=== PATIENT | female | born 1945 | race Caucasian/White ===

== ENCOUNTER 2020-06-13 08:27 | Day surgery (SDC) | payer OTHER ==
[2020-06-10 10:20] LABS: Absolute Lymphocytes (CBC) 1.8 K/uL (0.7-4.9); Basophils % 1.4 % (0-1.3); Hematocrit 41.4 % (36.0-45.0); Lymphocytes % 21.9 % (15.3-44.8); MPV 9.4 fL (7.6-11.3); RBC Red Blood Cell Count 4.56 M/uL (3.86-4.86)
--- NOTE | 2020-06-10 10:22 | RAD REPORT ---
EXAM DESCRIPTION: RAD - Chest Pa And Lat (2 Views) - 06/10/2020 10:11 am CLINICAL HISTORY: preop cardiac cath lab technologist, pending vascular catheterization procedure COMPARISON: December 2017 chest film; April 2018 CT chest TECHNIQUE: Frontal and lateral views of the chest were obtained. FINDINGS: The lungs are clear of an acute infiltrate or mass. Moderate severity bolus changes are p resent in the upper lung yepez. Fibrotic stranding in the lower lung yepez not clearly different th an comparison. Patient has flattened diaphragm and increased retrosternal space. Heart size is normal and central vasculature is within normal limits. No pleural effusion or pneumothorax seen. No acut e bony finding noted. No aortic abnormality. IMPRESSION: Prominent COPD changes similar to 2019 imaging. No acute finding.
[2020-06-10 10:32] LABS: Protime INR 0.96
[2020-06-10 10:45] LABS: Potassium 3.4 mmol/L (3.5-5.1)
[2020-06-13] MEDS ORDERED: NA CHLORIDE 0.9% 500 ML ONE (09:01)
[2020-06-13] MEDS ORDERED: HEPA 1000U/500MLS 2,000 UNIT/1,000 ML BAG IV ONE (09:23)
[2020-06-13] MEDS ORDERED: MIDAZOLAM HCL 2 MG/2 ML INJ ONE ×2 (09:48→09:54)
[2020-06-13] MEDS ORDERED: ATROPINE SULF 1 MG/10 ML SYR IV ONE (09:49)
[2020-06-13] MEDS ORDERED: FENTANYL CITR 100 MCG/2 ML ONE (09:49)
--- NOTE | 2020-06-13 11:25 | OP ---
Surgeon: González Newton MD Pump Servicer Supervisor: Mr. Costello. Procedure: Ms. Samuel is a 74-year-old woman with history of hypertension, dyslipidemia, severe tobac co use, severe PAD by Doppler and symptoms, brought to the medical lab technologist today as an outpatient for abdomi nal angiogram with run-off. Indication: PAD and abnormal arterial Doppler. Procedure In Detail: She was brought to the medical lab technologist as an outpatient, prepped and draped in the rou canelo sterile fashion. Given Versed and fentanyl for sedation. A 6-Romansh sheath introduced in the r ight common femoral artery successfully using the Seldinger technique and 10 cc of Xylocaine. A pigt ail catheter was advanced successfully above the renal artery in the distal aorta. Abdominal angiogr am with runoff was done showing normal renals, normal aorta, normal iliacs, and normal bilateral comm on femoral arteries. She had 100% occlusion of both SFA from the ostium all the way down to above th e popliteal. Both arteries reconstituted at the popliteal with good distal flow. The patient tolera gustavo the procedure well. There were no complications. Estimated Blood Loss: 5 mL. Postoperative Diagnosis: Severe peripheral arterial disease. Plan: For bilateral femoral-popliteal surgery. The film will be given to the patient. I will make an arrangement for outpatient surgery in [place]. Angiography in the right common femoral artery are a showed a patent common femoral artery. Angio-Seal was used to close the case. Anesthesia: Total conscious sedation was 45 minutes. MAXIMILIAN/AMANDA Voice ID: [id number] Report ID: [id number]
[2020-06-13 13:18] VITALS: BP 130/56; TEMP 97.3; O2SAT 97
== END 2020-06-13 12:10 | disposition home or self-care (01) ==
LOC: CCL 08:27
DX: I70.213 Atherosclerosis of native arteries of extremities with intermittent claudication, bilateral legs (principal); I70.92 Chronic total occlusion of artery of the extremities; I10 Essential (primary) hypertension; E78.5 Hyperlipidemia, unspecified; F17.200 Nicotine dependence, unspecified, uncomplicated; Z20.822 Contact with and (suspected) exposure to COVID-19
CPT/HCPCS: 93005; 85025; 80048; 36415; 85610; 85730; 71046; 36200; 75630; U0003; C1893; J2250; J3010; J7040; J1644

== ENCOUNTER 2021-07-17 19:00 | Emergency (ER) | payer OTHER ==
--- OUTSIDE RECORDS SUMMARY | 2021-07-17 19:02 | XMS REPORT | Clinical Summary ---
:1945 Author Organization [facility] MD [facility] Address [address] [place] [address] Care Team Providers Name Role Phone Tanner Mullen MD Unavailable Maddie Vargas Unavailable Hayley Verdin Unavailable Hayley Ley NP Unavailable Unavailable Stanley Barry MD Unavailable Matt Lemus MD Unavailable Paula Zeng MD Unavailable MD Vinnie Unavailable Maddie Gale MD Unavailable Unavailable MD Randell Unavailable Kamran Porter Unavailable MD Theron Unavailable Unavailable Matt Lemus MD Primary Care Provider Allergies Active Allergy Reactions Severity Noted Date Comments Naproxen Sodium 04/29/2015 Advised not to take this medication Codeine Sulfate 04/29/2015 Nausea and v omiting Hydrocodone-Acetaminophe 04/29/2015 Vincent sea and vomiting n Tetracyclines Other (See Comments) 07/07/2015 "Black tongue" Medications Medication Sig Dispensed Refills Start Date End Date Status BIOTIN ORAL Take by mouth 0 Acti ve daily. CALCIUM Take 1,200 mg/mL 0 Act pretty CARBONATE/VITAMIN D3 by mouth daily. (CALCIUM+D ORAL) GUAIFENESIN/PSEUDOEPHE Take 1 tablet by 0 Active DRNE HCL (MUCINEX D mouth daily. ORAL) Reported on 07/05/2016 VITAMIN E, Take 400 mg by 0 Acti ve DL,TOCOPHERYL ACET, mouth. Reported (VITAMIN E, ACETATE,) on 07/05/2016 400 units cap capsule cholecalciferol, Take 400 Units by 0 Active vitamin D3, (VITAMIN mouth. D3) 5,000 units tab tablet anastrozole (ARIMIDEX) Take 1 tablet (1 90 tablet 3 12/15/2015 Active 1 mg mg total) by mouth tabletIndications: daily. Personal history of malignant neoplasm of breast amLODIPine (NORVASC) 0 01/04/2015 Active 2.5 mg tablet lisinopril Take 5 mg by mouth 0 Active (PRINIVIL,ZESTRIL) 5 every morning. mg tablet acetaminophen-codeine 0 06/30/2016 Active (TYLENOL #3) 300 mg-30 mg tablet ondansetron (ZOFRAN) 4 0 06/30/2016 Active mg tablet turmeric root extract Take 500 mg by 0 Active 500 mg cap mouth daily. coconut oil 1,000 mg Take 1 mg by mouth 0 Active cap daily. anastrozole (ARIMIDEX) Take 1 tablet (1 90 tablet 3 07/05/2016 Active 1 mg mg) by mouth tabletIndications: daily. 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, Osteoporosis Active Problems Problem Noted Date Osteoporosis 12/29/2015 Infiltrating duct carcinoma of overlapping sites of ri ght female breast 03/11/2014 Cancer Staging: Pathologic stage from 10/13/2013: Stage IA (T1c, N0, cM0) - Signed by Kei Lemus MD on 07/07/2015 Surgical History Surgery Date Site/Laterality Comments APPENDECTOMY HYSTERECTOMY TUBAL LIGATION Bilateral INCONTINENCE SURGERY BREAST LUMPECTOMY Right with slnb Medical History Medical History Date Comments Breast cancer Chronic obstructive pulmonary disease Hypertension Hypercholesterolemia Chronic bronchitis Pneumonia Chronic bronchitis Family History Medical History Relation Name Comments Breast cancer Mother Relation Name Status Comments Mother Social History Tobacco Use Types Packs/Day Years Used Date Current Every Day Smoker Cigarettes 2 Alcohol Use Standard Drinks/Week Comments No 0 (1 standard drink = 0.6 oz pure alcoho l) Sex Assigned at Date Recorded Not on file Obstetrics History Para Term AB IAB SAB Ectopic Multiple Living Live Births 3 3 3 2 Date Outcome GA Total Labor/2nd/3rd Weight Sex Delivery Anes PTL Jane A 1 A5 Name Clin Labor Term Term Term Last Filed Vital Signs Not on file Plan of Treatment Health Maintenance Due Date Last Done Comments COVID-19 Vaccination (1) 09/28/1950 Results Not on fileafter 07/17/2020 Insurance Payer Benefit Plan / Subscriber ID Effective Dates Phone Addre ss Type Group HUMANA HUMANA CHOICE [id number] 2011-Presen [address] [address] Medicare [place]IC[place] [address] ([place]) [address] [address] Ting Samuel Personal/Family Self [address] [place] [address] (Home) Road [address] [place] [phone] Ting Samuel Personal/Family Self [address] [place] [address] ([place]) [address] [phone] Advance Directives Type Date Recorded Patient Memory Care Program Director Explanati on Advance Directives: Medical 10/12/2013 12:00 AM Ca storical Power of Layer Out Care Teams Land Appraiser Relationship Specialty Start Date End Date Tanner Mullen, PCP - External Primary 09/09/13 MD Care Provider Kei Lemus PCP - General Breast Medical 07/05/16 MD [facility] [address] [place] [id number] Chandni Vargas, Physician Corn Cutter Operator 06/15/15 PA [address] [place] [address] Leigha Verdin, Nurse Practitioner 06/15/15 RISK INVESTIGATOR [address] [place] [id number] Daksha Ley, Nurse Practitioner 06/15/15 FISH DRIER Shantanu Barry MD Physician 06/15/[address] [place] [id number] Kei Lemus Physician 06/15/15 MD Matt [address] [place] [id number] Dilshad Zeng, Physician 06/15/[address] [place] [id number] Verónica Birmingham MD Physician 06/15/[address] [place] [id number] Quentin Gale MD Physician 06/15/15 Dipak Mejias MD Physician 06/15/[address] [place] [id number] Sobeida Porter PA Physician Corn Cutter Operator 06/15/[address] [place] [address]. [place] [address] Angelic Crump MD Physician 06/15/15
--- OUTSIDE RECORDS SUMMARY | 2021-07-17 19:04 | XMS REPORT | Continuity of Care Document ---
:1945 Author Organization Formerly [facility] t Address [address] [place] [address] Care Team Providers Name Role Phone Mariah DE JESUS, N. Primary Care Physician NADIA RIVAS Attending Clinician Unavailable Alber RN, P Attending Clinician Unavailable Po, Care Clinic Attending Clinician Unavailable Bernardo Ervin Attending Clinician NADIA RIVAS Admitting Clinician Unavailable Payers Payer Name Policy Type Policy Number Effective Date Expiration Date S ource [employer] MEDICARE [id number] 2018 ADV 00:00:00 Problems Condition Condition Condition Status Onset Resolution Last Treating Co mments Source Name Details Category Date Date Treatment Clinician Date Bladder Bladder Disease Active Univers incontinen incontinen 5-08 it y of ce ce 00:00: [place] 00 Medical Branch Bowel Bowel Disease Active 2020-0 Univers incontinen incontinen 5-08 it y of ce ce 00:00: [place] 00 Medical Branch COPD COPD Disease Active 2019- Univers (chronic (chronic 5-08 [place] obstructiv [place] Medical pulmonary pulmonary Bran ch disease) disease) with with chronic chronic bronchitis bronchitis PAD PAD Disease Active 2019- Univers (periphera (periphera 5-08 it y of l artery l artery 00:00: [place] disease) disease) 00 Medica l Branch Acute Acute Disease Active 2018- Univers midline midline 8-02 ity of low back low back 00:00: [place] pain pain 00 Medical without without Branch sciatica sciatica Cerebrovas Cerebrovas Disease Active U nivers cular cular 3- ity of accident accident 00:00: [place] (CVA) due (CVA) due 00 Medi trey to to Branch 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 Osteoporos Osteoporos Disease Active M D is is 9- Anderso 00:00: n 00 Malignant Malignant Disease Active 2013-04 Uni vers neoplasm neoplasm 2-04 ity of of of 00:00: [place] overlappin overlappin 00 Me dical g sites of g sites of Br anch 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 00:00: n of of 00 overlappin overlappin g sites of g sites of right right female female breast breast Allergies, Adverse Reactions, Alerts Allergy Allergy Status Severity Reaction(s) Onset Inactive Treating Comm ents Source Name Type Date Date Clinician Codeine Propensi Active Nausea Univers ty to and/or 07-04 ity of adverse Vomiting 00:00: [place] reaction 00 Medical s Branch CODEINE DRUG Active N/V Univers INGREDI 3 ity of 00:00: [place] 00 Medical Branch TETRACYC Allergy Active Med Other [facility] Tetracyc Propensi Active Unknown - "Black Uni vers lines ty to See comments 331 tongue" ity of adverse 00:00: [place] reaction 00 Medical s Branch TETRACYC Drug Active Unknown-Cmnt Un adams LINES Class 3-31 ity of 00:00: [place] 00 Medical Branch NAPROXEN Allergy Active High [facility]UM - [facility] CODEINE Allergy Active Med N\\T\\V [facility] HYDROCOD Allergy Active Med [address] [facility] ONE-ACET - [facility] - AMINOPHE 00:00: Medical N 00 Center Codeine Propensi Active Unknown - Nausea Univ ers Sulfate ty to See comments 04-29 and ity of adverse 00:00: vomiting [place] reaction 00 Medical s Branch Hydrocod Propensi Active Unknown - Nausea Uni vers one-Acet ty to See comments 1- and it y of aminophe adverse 00:00: vomiting [place] n reaction 00 Medical s Branch Naproxen Propensi Active Unknown - Advised Un adams Sodium ty to See comments 1-22 not to ity of adverse 00:00: take this [place] reaction 00 medicatio Medic al s n Branch CODEINE DRUG Active Unknown-Cmnt Uni vers SULFATE INGREDI 04-29 ity of 00:00: [place] 00 Medical Branch HYDROCOD DRUG Active Unknown-Cmnt Un adams ONE-ACET - ity of AMINOPHE 00:00: [place] N 00 Medical Branch NAPROXEN DRUG Active Unknown-Cmnt Un adams SODIUM INGREDI 04-29 ity of 00:00: [place] 00 Medical Branch NO KNOWN Allergy Active [facility] ALLERGIE S NO KNOWN Drug Active Univers ALLERGIE Class ity of S [facility] Family History Family Member Diagnosis Comments Start Date Stop Date Source Natural mother Breast cancer MD Jeovanny austin Social History Social Habit Start Date Stop Date Quantity Comments Source Exposure to Not sure [facility]-CoV-2 (event) [facility] History of tobacco Cigarette Smoker MD Marte use Alcohol intake 2015-12-29 2015-12-29 Current MD Rico miller 00:00:00 00:00:00 non-drinker of alcohol (finding) Cigarettes smoked 2015-07-07 2015-07-07 MD Jeovanny austin current (pack per 00:00:00 00:00:00 day) - Reported Sex [birth year] MD Ramos on 00:00:00 00:00:00 Smoking Status Start Date Stop Date Source Never smoker [facility] Smokes tobacco daily 2015-07-07 00:00:00 MD Jeovanny austin Medications Ordered Filled Start Stop Current Ordering Indication Dosage Frequency Signature Comments Components Source Medication Medication Date Date Medication? Clinician (SIG) Name Name lisinopril 0 2020- No 5mg Take 5 mg U nivers 5 mg tablet 508 05-08 by mouth. it y of 18:22: 00:00 [place] 46 :00 Medical Branch albuterol Yes 2{puff} Inhale 2 U nivers 90 5-08 Puffs. ity of mcg/actuati 18:12: [place] on inhaler 19 Medical Branch albuterol 2020-0 Yes 2{puff} Inhale 2 U nivers 90 5-08 Puffs. ity of mcg/actuati 18:12: [place] on inhaler 19 Medical Branch calcium 2020-0 Yes 1200mg/ Take 1,200 U nivers carbonate 5-08 mL mg/mL by ity of (CALCIUM 18:04: mouth. [place] 300 ORAL) 17 Medical Branch ascorbic 2020-0 Yes Univers acid,sod-zi 5-08 ity of nc ox,gluc 18:04: [place] (ZINC AND 17 Medical C) 120-20 Branch mg Lozg calcium 2020-0 Yes 1200mg/ Take 1,200 U nivers carbonate 5-08 mL mg/mL by ity of (CALCIUM 18:04: mouth. [place] 300 ORAL) Medical Branch ascorbic 2020-0 Yes Univers acid,sod-zi 5-08 ity of nc ox,gluc 18:04: [place] (ZINC AND 17 Medical C) 120-20 Branch mg Lozg BIOTIN ORAL 2020-0 Yes Take by Un adams 5-08 mouth. ity of 18:03: [address] Branch Cholecalcif 2020-0 Yes 400U Take 400 Un adams nancy, 5-08 Units by ity of Vitamin D3, 18:03: [place]. [place] 125 mcg 13 Medical (5,000 Branch unit) tablet BIOTIN ORAL 2020-0 Yes Take by Un adams 5-08 mouth. ity of 18:03: [address] Cholecalcif 2020-0 Yes 400U Take 400 Un adams nancy, 5-08 Units by ity of Vitamin D3, 18:03: [place]. [place] 125 mcg 13 Medical (5,000 Branch unit) tablet coconut oil 2020-0 Yes 1mg Take 1 mg U nivers 1,000 mg 5-08 by mouth. ity of Cap 18:01: [address] coconut oil 2020-0 Yes 1mg Take 1 mg U nivers 1,000 mg 5-08 by mouth. ity of Cap 18:01: [address] fluticasone 2020-0 Yes [id number] 1{inhal Inhale 1 Univers -umeclidin- 5-08 er} Inhaler ity o f vilanter 00:00: daily. [place] (TRELEGY 00 Medical ELLIPTA) Branch 100-62.5-25 mcg DsDv fluticasone 2020-0 Yes [id number] 1{inhal Inhale 1 Univers -umeclidin- 5-08 er} Inhaler ity o f vilanter 00:00: daily. [place] (TRELEGY 00 Medical ELLIPTA) Branch 100-62.5-25 mcg DsDv Ascorbic 2020-0 Yes Univers Acid 5-07 ity of (VITAMIN C) 00:00: [place] 500 mg CpSR 00 Medical Branch Ascorbic 2020-0 Yes Univers Acid 5-07 ity of (VITAMIN C) 00:00: [place] 500 mg CpSR 00 Medical Branch neomycin-po 2019-0 2020- No Unive rs lymyxin-dex 5-07 05-08 ity of amethasone 00:00: 00:00 [place] 3.5 00 :00 Medical mg/g-10,000 Branch unit/g-0.1 % ophthalmic ointment hydroxychlo 2019-0 Yes Univer s roquine 200 5-06 ity of mg tablet 00:00: [place] 00 Medical Branch azithromyci 2020-0 Yes Univer s n 5-06 ity of (ZITHROMAX) 00:00: [place] 500 mg 00 Medical tablet Branch hydroxychlo 2019-0 Yes Univer s roquine 200 5-06 ity of mg tablet 00:00: [place] 00 Medical Branch azithromyci 2020-0 Yes Univer s n 5-06 ity of (ZITHROMAX) 00:00: [place] 500 mg 00 Medical tablet Branch amLODIPine 2019-0 2020- No Univer s 5 mg tablet 4-03 05-08 ity of 00:00: 00:00 [place] 00 :00 Medical Branch potassium 2020-0 Yes Univers chloride 8 4-02 ity of mEq CR 00:00: [place] capsule 00 Medical Branch potassium 2020-0 Yes Univers chloride 8 4-02 ity of mEq CR 00:00: [place] capsule 00 Medical Branch levoFLOXaci 2019-0 2020- No Unive rs n 500 mg 2-25 05-08 ity of tablet 00:00: 00:00 [place] 00 :00 Medical Branch methylPREDN 2019-0 2020- No Unive rs ISolone 4 2-25 05-08 ity of mg tablets 00:00: 00:00 [place] 00 :00 Medical Branch amLODIPine 2019-0 2020- No Univer s 5 mg tablet 9- 05-08 ity of 00:00: 00:00 [place] 00 :00 Medical Branch potassium 2018- Yes Univers chloride 3-11 ity of (MICRO-K 00:00: [place] ORAL) 00 Medical Branch furosemide Yes Univers (LASIX) 80 3-11 ity of mg tablet 00:00: [place] 00 Medical Branch potassium Yes Univers chloride 3-11 ity of (MICRO-K 00:00: [place] ORAL) 00 Medical Branch furosemide Yes Univers (LASIX) 80 3-11 ity of mg tablet 00:00: [place] 00 Medical Branch BIOTIN ORAL Yes Take by MD 3-30 mouth Anderso 12:55: daily. n 42 CALCIUM Yes 1200mg/ Take 1,200 M D CARBONATE/V 3-30 mL mg/mL by Jeovanny rso ITAMIN D3 12:55: mouth n (CALCIUM+D 42 daily. ORAL) GUAIFENESIN Yes 1{tbl} Take 1 MD /PSEUDOEPHE 3-30 tablet by And erso DRNE HCL 12:55: mouth n (MUCINEX D 42 daily. ORAL) Reported on 07/05/2016 VITAMIN E, Yes 400mg Take 400 MD DL,TOCOPHER 3-30 mg by Anderso YL ACET, 12:55: mouth. n (VITAMIN E, 42 Reported ACETATE,) on 400 units 07/05/2016 cap capsule cholecalcif Yes 400U Take 400 MD nancy, 3-30 Units by Anderso vitamin D3, 12:55: mouth. n (VITAMIN 42 D3) 5,000 units tab tablet lisinopril Yes 5mg Take 5 mg MD (PRINIVIL,Z 3-30 by mouth Jeovanny rso ESTRIL) 5 12:55: every n mg tablet 42 morning. turmeric Yes 500mg Take 500 MD root 3-30 mg by Anderso extract 500 12:55: mouth n mg cap 42 daily. coconut oil Yes 1mg Take 1 mg M D 1,000 mg 3-30 by mouth Anderso cap 12:55: daily. n 42 anastrozole Yes Osteoporosi 1mg Take 1 MD (ARIMIDEX) 3-30 s tablet (1 Jeovanny rso 1 mg tablet 00:00: mg) by n 00 mouth daily. acetaminoph Yes MD en-codeine 3-25 Anderso (TYLENOL 00:00: n #3) 300 00 mg-30 mg tablet ondansetron Yes MD (ZOFRAN) 4 3-25 Anderso mg tablet 00:00: n 00 acetaminoph 2019- No Unive rs en-codeine 325 05-08 ity of 300-30 mg 00:00: 00:00 [place] tablet 00 :00 Medical Branch ondansetron 2020- No Unive rs 4 mg tablet 06-30-08 ity of 00:00: 00:00 [place] 00 :00 Medical Branch anastrozole Yes Personal 1mg Take 1 MD (ARIMIDEX) 12-14 history of tablet (1 Anderso 1 mg tablet 00:00: malignant mg total) n 00 neoplasm of by mouth breast daily. anastrozole 2019- No 1mg Take 1 mg Univers 1 mg tablet 12-14-08 by mouth ity of 00:00: 00:00 [place] 00 :00 Medical Branch amLODIPine 0 Yes Univers 2.5 mg 9-29 ity of tablet 00:00: [place] 00 Medical Branch amLODIPine 2014-0 Yes Univers 2.5 mg 9-29 ity of tablet 00:00: [place] 00 Medical Branch amLODIPine 0 Yes (NORVASC) 9-29 Anderso 2.5 mg 00:00: n tablet 00 aspirin 2000-0 Yes Univers (ADULT LOW 1-15 ity of DOSE 00:00: [place] ASPIRIN) 81 00 Medical mg EC Branch tablet aspirin 2000-0 Yes Univers (ADULT LOW 1-15 ity of DOSE 00:00: [place] ASPIRIN) 81 00 Medical mg EC Branch tablet Vital Signs Vital Name Observation Time Observation Value Comments Source HEIGHT 2020-08-17 06:20:00 154.9 cm WEIGHT 2020-08-17 06:20:00 68.539 kg HEIGHT 2020-08-16 11:55:00 154.9 cm WEIGHT 2020-08-16 11:55:00 68.04 kg WEIGHT 2020-06-23 09:54:00 68.901 kg HEIGHT 2020-06-22 06:24:00 156.2 cm WEIGHT 2020-06-22 06:24:00 65 kg HEIGHT 2020-06-20 10:58:00 156.2 cm WEIGHT 2020-06-20 10:58:00 68.04 kg HEIGHT 2020-08-30 09:30:00 154.9 cm WEIGHT 2020-08-30 09:30:00 68.04 kg HEIGHT 2020-08-17 06:20:00 154.9 cm WEIGHT 2020-08-17 06:20:00 68.539 kg HEIGHT 2020-08-16 11:55:00 154.9 cm WEIGHT 2020-08-16 11:55:00 68.04 kg HEIGHT 2020-08-02 09:32:00 154.9 cm WEIGHT 2020-08-02 09:32:00 68.04 kg HEIGHT 2020-08-02 09:32:00 154.9 cm WEIGHT 2020-08-02 09:32:00 68.04 kg HEIGHT 2020-07-05 09:33:00 154.9 cm WEIGHT 2020-07-05 09:33:00 68.04 kg WEIGHT 2020-06-23 09:54:00 68.901 kg HEIGHT 2020-06-22 06:24:00 156.2 cm WEIGHT 2020-06-22 06:24:00 65 kg HEIGHT 2020-06-20 10:58:00 156.2 cm WEIGHT 2020-06-20 10:58:00 68.04 kg HEIGHT 2020-06-16 09:10:00 156.2 cm WEIGHT 2020-06-16 09:10:00 69.4 kg HEIGHT 2020-06-16 09:10:00 156.2 cm WEIGHT 2020-06-16 09:10:00 69.4 kg Systolic blood 2019-08-14 18:01:00 119 mm[Hg] Univer sity of pressure [facility] Diastolic blood 2019-08-14 18:01:00 76 mm[Hg] Unive rsity of pressure [facility] Heart rate 2019-08-14 18:01:00 77 /min [facility] Body temperature 2019-08-14 18:01:00 36.67 [place] Univ ersity [facility] Respiratory rate 2019-08-14 18:01:00 20 /min [facility] Body height 2019-08-14 18:01:00 152.4 cm [facility] Body weight 2019-08-14 18:01:00 70.308 kg [facility] BMI 2019-08-14 18:01:00 30.27 kg/m2 [facility] Oxygen saturation in 2019-08-14 18:01:00 99 /min [facility] Arterial blood by [facility] Pulse oximetry Branch Procedures This patient has no known procedures. Plan of Care Planned Activity Planned Date Details Comments Source Future Scheduled Test 1950-09-28 00:00:00 COVID-19 Vaccination MD Marte (1) [code = COVID-19 Vaccination (1)] Encounters Start End Encounter Admission Attending Care Care Encounter Source Date/Time Date/Time Type Type Clinicians Facility Department ID 2021-01-14 Inpatient PABLO RIVAS Surgery [id number] [facility] 16:26:39 GABI 2021-01-14 Inpatient MARGUERITE RIVAS Surgery [id number] [facility] 07:34:27 GABI 2020-08-30 2020-08-30 Outpatient MISAEL RIVAS [facility] [id number] [facility] 00:00:00 00:00:00 GABI 2020-08-16 2020-08-16 [id number] 00:00:00 00:00:00 2020-08-03 2020-08-03 [id number] [facility] 00:00:00 00:00:00 GABI 2020-08-02 2020-08-02 [facility] [id number] [facility] 00:00:00 00:00:00 GABI 2020-07-05 2020-07-05 [facility] [id number] [facility] 00:00:00 00:00:00 GABI 2020-06-20 2020-06-20 Outpatient [facility] [id number] [facility] 00:00:00 00:00:00 2020-06-16 2020-06-16 [facility] [id number] [facility] 00:00:00 00:00:00 GABI 2019-08-15 2019-08-15 Telephone GEE Campo [id number] Univers 00:00:00 00:00:00 Tiara Tracy ANJANA [id number] ity of [facility] [id number] Anastacio as [phone] [address] 2019-08-14 2019-08-14 Outpatient R [facility] [id number] Univers 13:20:00 13:20:00 ity [facility] 2019-08-14 2019-08-14 Urgent Pob1, Acute Care Clinic [facility] [id number]. [id number] Univers 12:53:03 13:13:[address] [facility] [id number] ity [facility] [id number] Anastacio as Normaio [id number] [place] dical nal 044 Branch Office [address] One Results Test Description Test Time Test Comments Results Result Comments Source BASIC METABOLIC PANEL 2020-08-18 07:02:00 Test Item Value Reference Range Interpretation Comme nts SODIUM (BEAKER) (test code 135 meq/L 136-145 L = 381) POTASSIUM (BEAKER) (test 4.4 meq/L 3.5-5.1 code = 379) CHLORIDE (BEAKER) (test 101 meq/L 98-107 code = 382) CO2 (BEAKER) (test code = 25 meq/L 22-29 355) BLOOD UREA NITROGEN 11 mg/dL 7-21 (BEAKER) (test code = 354) CREATININE (BEAKER) (test 0.78 mg/dL 0.57-1.25 code = 358) GLUCOSE RANDOM (BEAKER) 105 mg/dL 70-105 (test code = 652) CALCIUM (BEAKER) (test code 8.9 mg/dL 8.4-10.2 = 697) EGFR (BEAKER) (test code = 72 mL/min/1.73 sq m ESTIMATED GFR IS NOT 1092) ACCURATE CRE ATININE CLEARANCE IN [place] EDICTING GLOMERULAR FILT RATION RATE. ESTIMATED GFR IS NOT APPLICABLE FOR DIALYSIS PATIENTS. Senior Scientist ID - KATHY [facility] W/PLT COUNT & AUTO [id number] 06:37:00 Test Item Value Reference Range Interpretation Comments WHITE BLOOD CELL COUNT (BEAKER) 13.4 K/ L 3.5-10.5 H (test code = 775) RED BLOOD CELL COUNT (BEAKER) 4.08 M/ L 3.93-5.22 (test code = 761) HEMOGLOBIN (BEAKER) (test code = 12.3 GM/DL 11.2-15.7 410) HEMATOCRIT (BEAKER) (test code = 37.9 % 34.1-44.9 411) MEAN CORPUSCULAR VOLUME (BEAKER) 92.9 fL 79.4-94.8 (test code = 753) MEAN CORPUSCULAR HEMOGLOBIN 30.1 pg 25.6-32.2 (BEAKER) (test code = 751) MEAN CORPUSCULAR HEMOGLOBIN CONC 32.5 GM/DL 32.2-35.5 (BEAKER) (test code = 752) RED CELL DISTRIBUTION WIDTH 13.6 % 11.7-14.4 (BEAKER) (test code = 412) PLATELET COUNT (BEAKER) (test 300 K/CU MM 150-450 code = 756) MEAN PLATELET VOLUME (BEAKER) 10.8 fL 9.4-12.3 (test code = 754) NUCLEATED RED BLOOD CELLS 0 /100 WBC 0-0 (BEAKER) (test code = 413) NEUTROPHILS RELATIVE PERCENT 81 % (BEAKER) (test code = 429) LYMPHOCYTES RELATIVE PERCENT 12 % (BEAKER) (test code = 430) MONOCYTES RELATIVE PERCENT 6 % (BEAKER) (test code = 431) EOSINOPHILS RELATIVE PERCENT 0 % (BEAKER) (test code = 432) BASOPHILS RELATIVE PERCENT 0 % (BEAKER) (test code = 437) NEUTROPHILS ABSOLUTE COUNT 10.85 K/ L 1.56-6.13 H (BEAKER) (test code = 670) LYMPHOCYTES ABSOLUTE COUNT 1.56 K/ L 1.18-3.74 (BEAKER) (test code = 414) MONOCYTES ABSOLUTE COUNT (BEAKER) 0.80 K/ L 0.24-0.36 H (test code = 415) EOSINOPHILS ABSOLUTE COUNT 0.05 K/ L 0.04-0.36 (BEAKER) (test code = 416) BASOPHILS ABSOLUTE COUNT (BEAKER) 0.02 K/ L 0.01-0.08 (test code = 417) IMMATURE GRANULOCYTES-RELATIVE 1 % 0-1 PERCENT (BEAKER) (test code = 2801) PROTHROMBIN [id number] 06:26:00 Test Item Value Reference Range Interpretation Comments PROTIME (BEAKER) 13.1 seconds 11.9-14.2 (test code = 759) INR (BEAKER) (test 1.03 See_Comment [Automat ed message] code = 370) The system Uguru generated this result transmitted ref erence range: <=5.90. The reference range was not used to int erpret this result as normal/abnormal . Effective 09/03/2018: PT Reference Range ChangeNew: 11.9-14.2 Previous: 11.7- 14.7RECOMMENDED COUMADIN/WARFARIN INR THERAPY RANGESSTANDARD DOSE: 2.0-3.0 Includes: PROPHYLAXIS for venous thrombosis, systemic embolization; TREATMENT for venous thrombosis and/or pulmonary embolus.HIGH RISK: Target INR is2.5-3.5 for patients wiht mechanical heart valves.[id number] 06:23:00 Test Item Value Reference Range Interpretation Comments PARTIAL THROMBOPLASTIN TIME 27.9 seconds 22.5-36.0 (BEAKER) (test code = 760) GLUCOSE-STAT [id number] 10:17:00 Test Item Value Reference Range Interpretation Comments GLUCOSE RANDOM (BEAKER) (test code 111 mg/dL 70-110 H = 652) POTASSIUM-STAT [id number] 10:17:00 Test Item Value Reference Range Interpretation Comments POTASSIUM (BEAKER) (test code = 3.2 meq/L 3.6-5.5 L 379) SODIUM NA-STAT [id number] 10:16:00 Test Item Value Reference Range Interpretation Comments SODIUM (BEAKER) (test code = 381) 143 meq/L 136-145 HGB/HCT (H&H) - STAT [id number] 10:16:00 Test Item Value Reference Range Interpretation Comments HEMOGLOBIN (BEAKER) (test code = 14.1 GM/DL 12.0-15.0 410) HEMATOCRIT (BEAKER) (test code = 41.0 % 36.0-45.0 411) CALCIUM, [id number] 10:16:00 Test Item Value Reference Range Interpretation Comments CALCIUM IONIZED (BEAKER) (test 1.21 mmol/L 1.12-1.27 code = 698) PH, BLOOD (BEAKER) (test code = 7.28 1810) POCT-GLUCOSE [id number] 06:38:00 Test Item Value Reference Range Interpretation Comments POC-GLUCOSE METER 101 mg/dL 70-110 : TESTED A T BSC 6720 (BEAKER) (test code [facility], = 1538) 25416: Senior Scientist/Techni aubree ID = [id number] for JORD AN, LACRYSTAL BASIC METABOLIC [id number] 11:03:00 Test Item Value Reference Range Interpretation Comments SODIUM (BEAKER) 140 meq/L 136-145 (test code = 381) POTASSIUM (BEAKER) 3.9 meq/L 3.5-5.1 (test code = 379) CHLORIDE (BEAKER) 99 meq/L 98-107 (test code = 382) CO2 (BEAKER) (test 31 meq/L 22-29 H code = 355) BLOOD UREA NITROGEN 15 mg/dL 7-21 (BEAKER) (test code = 354) CREATININE (BEAKER) 0.94 mg/dL 0.57-1.25 (test code = 358) GLUCOSE RANDOM 95 mg/dL 70-105 (BEAKER) (test code = 652) CALCIUM (BEAKER) 9.7 mg/dL 8.4-10.2 (test code = 697) EGFR (BEAKER) (test 58 mL/min/1.73 ESTIMA SERAFIN GFR IS code = 1092) sq m NOT ACCURATE CREATININE CLEARANCE IN PREDICTING GLOMERULAR FILTRATION RATE . ESTIMATED GFR I S NOT APPLICABLE FOR DIALYSIS PATIEN TS. Senior Scientist ID - ROSIANGPROTHROMBIN TIME/[id number] 10:58:00 Test Item Value Reference Range Interpretation Comments PROTIME (BEAKER) 12.8 seconds 11.9-14.2 (test code = 759) INR (BEAKER) (test 0.99 See_Comment [Automat ed message] code = 370) The system Uguru generated this result transmitted ref erence range: <=5.90. The reference range was not used to int erpret this result as normal/abnormal . Effective 09/03/2018: PT Reference Range ChangeNew: 11.9-14.2 Previous: 11.7- 14.7RECOMMENDED COUMADIN/WARFARIN INR THERAPY RANGESSTANDARD DOSE: 2.0-3.0 Includes: PROPHYLAXIS for venous thrombosis, systemic embolization; TREATMENT for venous thrombosis and/or pulmonary embolus.HIGH RISK: Target INR is2.5-3.5 for patients wiht mechanical heart valves.CBC W/PLT COUNT & AUTO [id number] 10:45:00 Test Item Value Reference Range Interpretation Comments WHITE BLOOD CELL COUNT (BEAKER) 7.0 K/ L 3.5-10.5 (test code = 775) RED BLOOD CELL COUNT (BEAKER) 4.48 M/ L 3.93-5.22 (test code = 761) HEMOGLOBIN (BEAKER) (test code = 13.7 GM/DL 11.2-15.7 410) HEMATOCRIT (BEAKER) (test code = 40.8 % 34.1-44.9 411) MEAN CORPUSCULAR VOLUME (BEAKER) 91.1 fL 79.4-94.8 (test code = 753) MEAN CORPUSCULAR HEMOGLOBIN 30.6 pg 25.6-32.2 (BEAKER) (test code = 751) MEAN CORPUSCULAR HEMOGLOBIN CONC 33.6 GM/DL 32.2-35.5 (BEAKER) (test code = 752) RED CELL DISTRIBUTION WIDTH 13.4 % 11.7-14.4 (BEAKER) (test code = 412) PLATELET COUNT (BEAKER) (test 311 K/CU MM 150-450 code = 756) MEAN PLATELET VOLUME (BEAKER) 10.5 fL 9.4-12.3 (test code = 754) NUCLEATED RED BLOOD CELLS 0 /100 WBC 0-0 (BEAKER) (test code = 413) NEUTROPHILS RELATIVE PERCENT 68 % (BEAKER) (test code = 429) LYMPHOCYTES RELATIVE PERCENT 22 % (BEAKER) (test code = 430) MONOCYTES RELATIVE PERCENT 6 % (BEAKER) (test code = 431) EOSINOPHILS RELATIVE PERCENT 2 % (BEAKER) (test code = 432) BASOPHILS RELATIVE PERCENT 1 % (BEAKER) (test code = 437) NEUTROPHILS ABSOLUTE COUNT 4.76 K/ L 1.56-6.13 (BEAKER) (test code = 670) LYMPHOCYTES ABSOLUTE COUNT 1.53 K/ L 1.18-3.74 (BEAKER) (test code = 414) MONOCYTES ABSOLUTE COUNT (BEAKER) 0.43 K/ L 0.24-0.36 H (test code = 415) EOSINOPHILS ABSOLUTE COUNT 0.14 K/ L 0.04-0.36 (BEAKER) (test code = 416) BASOPHILS ABSOLUTE COUNT (BEAKER) 0.10 K/ L 0.01-0.08 H (test code = 417) IMMATURE GRANULOCYTES-RELATIVE 0 % 0-1 PERCENT (BEAKER) (test code = 2801) BASIC METABOLIC [id number] 07:36:00 Test Item Value Reference Range Interpretation Comments SODIUM (BEAKER) 134 meq/L 136-145 L (test code = 381) POTASSIUM (BEAKER) 3.5 meq/L 3.5-5.1 (test code = 379) CHLORIDE (BEAKER) 99 meq/L 98-107 (test code = 382) CO2 (BEAKER) (test 27 meq/L 22-29 code = 355) BLOOD UREA NITROGEN 11 mg/dL 7-21 (BEAKER) (test code = 354) CREATININE (BEAKER) 0.78 mg/dL 0.57-1.25 (test code = 358) GLUCOSE RANDOM 102 mg/dL 70-105 (BEAKER) (test code = 652) CALCIUM (BEAKER) 8.1 mg/dL 8.4-10.2 L (test code = 697) EGFR (BEAKER) (test 72 mL/min/1.73 ESTIMA SERAFIN GFR IS code = 1092) sq m NOT ACCURATE CREATININE CLEARANCE IN PREDICTING GLOMERULAR FILTRATION RATE . ESTIMATED GFR I S NOT APPLICABLE FOR DIALYSIS PATIEN TS. Senior Scientist ID - [id number] (HEMOGRAM ONLY)2020-06-24 07:17:00 Test Item Value Reference Range Interpretation Comments WHITE BLOOD CELL COUNT (BEAKER) 9.2 K/ L 3.5-10.5 (test code = 775) RED BLOOD CELL COUNT (BEAKER) 3.74 M/ L 3.93-5.22 L (test code = 761) HEMOGLOBIN (BEAKER) (test code = 11.3 GM/DL 11.2-15.7 410) HEMATOCRIT (BEAKER) (test code = 34.8 % 34.1-44.9 411) MEAN CORPUSCULAR VOLUME (BEAKER) 93.0 fL 79.4-94.8 (test code = 753) MEAN CORPUSCULAR HEMOGLOBIN 30.2 pg 25.6-32.2 (BEAKER) (test code = 751) MEAN CORPUSCULAR HEMOGLOBIN CONC 32.5 GM/DL 32.2-35.5 (BEAKER) (test code = 752) RED CELL DISTRIBUTION WIDTH 14.0 % 11.7-14.4 (BEAKER) (test code = 412) PLATELET COUNT (BEAKER) (test 251 K/CU MM 150-450 code = 756) MEAN PLATELET VOLUME (BEAKER) 11.0 fL 9.4-12.3 (test code = 754) NUCLEATED RED BLOOD CELLS 0 /100 WBC 0-0 (BEAKER) (test code = 413) BASIC METABOLIC [id number] 10:30:00 Test Item Value Reference Range Interpretation Comments SODIUM (BEAKER) 135 meq/L 136-145 L (test code = 381) POTASSIUM (BEAKER) 3.7 meq/L 3.5-5.1 (test code = 379) CHLORIDE (BEAKER) 100 meq/L 98-107 (test code = 382) CO2 (BEAKER) (test 25 meq/L 22-29 code = 355) BLOOD UREA NITROGEN 11 mg/dL 7-21 (BEAKER) (test code = 354) CREATININE (BEAKER) 0.80 mg/dL 0.57-1.25 (test code = 358) GLUCOSE RANDOM 101 mg/dL 70-105 (BEAKER) (test code = 652) CALCIUM (BEAKER) 8.7 mg/dL 8.4-10.2 (test code = 697) EGFR (BEAKER) (test 70 mL/min/1.73 ESTIMA SERAFIN GFR IS code = 1092) sq m NOT ACCURATE CREATININE CLEARANCE IN PREDICTING GLOMERULAR FILTRATION RATE . ESTIMATED GFR I S NOT APPLICABLE FOR DIALYSIS PATIEN TS. Senior Scientist ID - PIAYA LCBC W/PLT COUNT & AUTO [id number] 07:19:00 Test Item Value Reference Range Interpretation Comments WHITE BLOOD CELL COUNT (BEAKER) 9.8 K/ L 3.5-10.5 (test code = 775) RED BLOOD CELL COUNT (BEAKER) 4.01 M/ L 3.93-5.22 (test code = 761) HEMOGLOBIN (BEAKER) (test code = 12.0 GM/DL 11.2-15.7 410) HEMATOCRIT (BEAKER) (test code = 38.1 % 34.1-44.9 411) MEAN CORPUSCULAR VOLUME (BEAKER) 95.0 fL 79.4-94.8 H (test code = 753) MEAN CORPUSCULAR HEMOGLOBIN 29.9 pg 25.6-32.2 (BEAKER) (test code = 751) MEAN CORPUSCULAR HEMOGLOBIN CONC 31.5 GM/DL 32.2-35.5 L (BEAKER) (test code = 752) RED CELL DISTRIBUTION WIDTH 14.2 % 11.7-14.4 (BEAKER) (test code = 412) PLATELET COUNT (BEAKER) (test 278 K/CU MM 150-450 code = 756) MEAN PLATELET VOLUME (BEAKER) 10.6 fL 9.4-12.3 (test code = 754) NUCLEATED RED BLOOD CELLS 0 /100 WBC 0-0 (BEAKER) (test code = 413) NEUTROPHILS RELATIVE PERCENT 74 % (BEAKER) (test code = 429) LYMPHOCYTES RELATIVE PERCENT 16 % (BEAKER) (test code = 430) MONOCYTES RELATIVE PERCENT 8 % (BEAKER) (test code = 431) EOSINOPHILS RELATIVE PERCENT 2 % (BEAKER) (test code = 432) BASOPHILS RELATIVE PERCENT 1 % (BEAKER) (test code = 437) NEUTROPHILS ABSOLUTE COUNT 7.22 K/ L 1.56-6.13 H (BEAKER) (test code = 670) LYMPHOCYTES ABSOLUTE COUNT 1.52 K/ L 1.18-3.74 (BEAKER) (test code = 414) MONOCYTES ABSOLUTE COUNT (BEAKER) 0.78 K/ L 0.24-0.36 H (test code = 415) EOSINOPHILS ABSOLUTE COUNT 0.15 K/ L 0.04-0.36 (BEAKER) (test code = 416) BASOPHILS ABSOLUTE COUNT (BEAKER) 0.10 K/ L 0.01-0.08 H (test code = 417) IMMATURE GRANULOCYTES-RELATIVE 0 % 0-1 PERCENT (BEAKER) (test code = 2801) CALCIUM, [id number] 12:34:00 Test Item Value Reference Range Interpretation Comments CALCIUM IONIZED (BEAKER) (test 1.10 mmol/L 1.12-1.27 L code = 698) PH, BLOOD (BEAKER) (test code = 7.36 1810) GLUCOSE-STAT [id number] 12:34:00 Test Item Value Reference Range Interpretation Comments GLUCOSE RANDOM (BEAKER) (test code 125 mg/dL 70-110 H = 652) POTASSIUM-STAT [id number] 12:33:00 Test Item Value Reference Range Interpretation Comments POTASSIUM (BEAKER) (test code = 4.1 meq/L 3.6-5.5 379) HGB/HCT (H&H) - STAT [id number] 12:33:00 Test Item Value Reference Range Interpretation Comments HEMOGLOBIN (BEAKER) (test code = 13.8 GM/DL 12.0-15.0 410) HEMATOCRIT (BEAKER) (test code = 41.0 % 36.0-45.0 411) POCT-GLUCOSE [id number] 06:57:00 Test Item Value Reference Range Interpretation Comments POC-GLUCOSE METER 90 mg/dL 70-110 : TESTED A T [facility] 6720 (BEAKER) (test code = [place], 1538) [address]: Senior Scientist/Techni aubree ID = [id number] for JORD AN, LACRYSTAL COMPREHENSIVE METABOLIC [id number] 12:28:00 Test Item Value Reference Range Interpretation Comments TOTAL PROTEIN 6.6 gm/dL 6.0-8.3 (BEAKER) (test code = 770) ALBUMIN (BEAKER) 3.9 g/dL 3.5-5.0 (test code = 1145) ALKALINE PHOSPHATASE 59 U/L 40-150 (BEAKER) (test code = 346) BILIRUBIN TOTAL 0.4 mg/dL 0.2-1.2 (BEAKER) (test code = 377) SODIUM (BEAKER) (test 139 meq/L 136-145 code = 381) POTASSIUM (BEAKER) 3.3 meq/L 3.5-5.1 L (test code = 379) CHLORIDE (BEAKER) 104 meq/L 98-107 (test code = 382) CO2 (BEAKER) (test 22 meq/L 22-29 code = 355) BLOOD UREA NITROGEN 8 mg/dL 7-21 (BEAKER) (test code = 354) CREATININE (BEAKER) 0.76 mg/dL 0.57-1.25 (test code = 358) GLUCOSE RANDOM 86 mg/dL 70-105 (BEAKER) (test code = 652) CALCIUM (BEAKER) 8.8 mg/dL 8.4-10.2 (test code = 697) AST (SGOT) (BEAKER) 13 U/L 5-34 (test code = 353) ALT (SGPT) (BEAKER) 9 U/L 6-55 (test code = 347) EGFR (BEAKER) (test 75 mL/min/1.73 ESTIMA SERAFIN GFR IS code = 1092) sq m NOT ACCURATE CREATININE CLEARANCE IN PREDICTING GLOMERULAR FILTRATION RATE . ESTIMATED GFR I S NOT APPLICABLE FOR DIALYSIS PATIEN TS. Senior Scientist ID - [id number] 12:24:00 Test Item Value Reference Range Interpretation Comments PROTIME (BEAKER) 13.6 seconds 11.9-14.2 (test code = 759) INR (BEAKER) (test 1.07 See_Comment [Automat ed message] code = 370) The system [employer] generated this result transmitted ref erence range: <=5.90. The reference range was not used to int erpret this result as normal/abnormal . Effective 09/03/2018: PT Reference Range ChangeNew: 11.9-14.2 Previous: 11.7- 14.7RECOMMENDED COUMADIN/WARFARIN INR THERAPY RANGESSTANDARD DOSE: 2.0-3.0 Includes: PROPHYLAXIS for venous thrombosis, systemic embolization; TREATMENT for venous thrombosis and/or pulmonary embolus.HIGH RISK: Target INR is2.5-3.5 for patients wiht mechanical heart valves.CBC W/PLT COUNT & AUTO [id number] 12:06:00 Test Item Value Reference Range Interpretation Comments WHITE BLOOD CELL COUNT (BEAKER) 6.5 K/ L 3.5-10.5 (test code = 775) RED BLOOD CELL COUNT (BEAKER) 4.37 M/ L 3.93-5.22 (test code = 761) HEMOGLOBIN (BEAKER) (test code = 13.2 GM/DL 11.2-15.7 410) HEMATOCRIT (BEAKER) (test code = 40.8 % 34.1-44.9 411) MEAN CORPUSCULAR VOLUME (BEAKER) 93.4 fL 79.4-94.8 (test code = 753) MEAN CORPUSCULAR HEMOGLOBIN 30.2 pg 25.6-32.2 (BEAKER) (test code = 751) MEAN CORPUSCULAR HEMOGLOBIN CONC 32.4 GM/DL 32.2-35.5 (BEAKER) (test code = 752) RED CELL DISTRIBUTION WIDTH 13.7 % 11.7-14.4 (BEAKER) (test code = 412) PLATELET COUNT (BEAKER) (test 308 K/CU MM 150-450 code = 756) MEAN PLATELET VOLUME (BEAKER) 10.9 fL 9.4-12.3 (test code = 754) NUCLEATED RED BLOOD CELLS 0 /100 WBC 0-0 (BEAKER) (test code = 413) NEUTROPHILS RELATIVE PERCENT 62 % (BEAKER) (test code = 429) LYMPHOCYTES RELATIVE PERCENT 29 % (BEAKER) (test code = 430) MONOCYTES RELATIVE PERCENT 6 % (BEAKER) (test code = 431) EOSINOPHILS RELATIVE PERCENT 2 % (BEAKER) (test code = 432) BASOPHILS RELATIVE PERCENT 1 % (BEAKER) (test code = 437) NEUTROPHILS ABSOLUTE COUNT 4.04 K/ L 1.56-6.13 (BEAKER) (test code = 670) LYMPHOCYTES ABSOLUTE COUNT 1.85 K/ L 1.18-3.74 (BEAKER) (test code = 414) MONOCYTES ABSOLUTE COUNT (BEAKER) 0.37 K/ L 0.24-0.36 H (test code = 415) EOSINOPHILS ABSOLUTE COUNT 0.14 K/ L 0.04-0.36 (BEAKER) (test code = 416) BASOPHILS ABSOLUTE COUNT (BEAKER) 0.08 K/ L 0.01-0.08 (test code = 417) IMMATURE GRANULOCYTES-RELATIVE 0 % 0-1 PERCENT (BEAKER) (test code = 6165)
--- NOTE | 2021-07-17 20:10 | RAD REPORT ---
EXAM DESCRIPTION: CT - Head Brain Wo Cont - 07/17/2021 8:04 pm CLINICAL HISTORY: NUMBNESS Headache, drowsiness COMPARISON: No comparisons TECHNIQUE: All CT scans are performed using dose optimization technique as appropriate and may inclu de automated exposure control or mA/KV adjustment according to patient size. FINDINGS: No intracranial hemorrhage, hydrocephalus or extra-axial fluid collection.Old infarct note d left occipital lobe.No areas of brain edema or evidence of midline shift. The paranasal sinuses and mastoids are clear. The calvarium is intact. IMPRESSION: No acute intracranial abnormality.
--- NOTE | 2021-07-17 21:13 | RAD REPORT ---
EXAM DESCRIPTION: RAD - Chest Single View - 07/17/2021 9:05 pm CLINICAL HISTORY: Dizziness Chest pain. COMPARISON: Chest Pa And Lat (2 Views) dated 07/10/2021; Chest Pa And Lat (2 Views) dated 06/10/2020; Ch est Pa And Lat (2 Views) dated 12/20/2017 FINDINGS: Portable technique limits examination quality. The lungs are mildly emphysematous but grossly clear. The heart is normal in size. No displaced fract ures. IMPRESSION: Mild diffuse COPD.
--- NOTE | 2021-07-17 22:28 | EDPHYS ---
Physician Documentation [facility] Name: Ting Samuel Age: 75 yrs Sex: Female : 1945 Arrival Date: 07/17/2021 Time: 19:03 Bed 2 Private MD: ED Physician Elliot Yee HPI: 07/17 20:41 This 75 yrs old Female presents to ER via Ambulatory with complaints of Numbness Of mh7 Face. 20:41 The patient's problem is reported as difficulty walking, off balance, paresthesias, in mh7 right upper extremity, in right side of face, weakness, in the right upper extremity, decreased interactive video technician ability. Onset: The symptoms/episode began/occurred yesterday, at 17:00. Duration: The episode is continuous. Context: the episode(s) was witnessed, by family, symptoms became apparent on July 16, 2021, occurred at home, occurred while the patient was sitting, Possible contributing factors include:. The symptoms are alleviated by nothing. The symptoms are aggravated by standing. Associated signs and symptoms: Pertinent negatives: abdominal pain, agitation, blurred vision, chest pain, combativeness, confusion, diaphoresis, diarrhea, nausea, palpitations, seizure, shortness of breath, vertigo, vomiting. Severity of symptoms: At their worst the symptoms were moderate yesterday, in the emergency department the symptoms are unchanged. Patient's baseline: Neuro: alert and fully oriented, Motor: no deficits, Ambulation: walks without assistance, Speech: normal, The patient has a previous history of CVA. Historical: - Allergies: 19:16 Codeine; jd3 - Home Meds: 19:16 furosemide 40 mg Oral tab [Active]; potassium chloride 40 mEq/15 mL Oral liqd [Active]; jd3 Doxycycline Oral [Active]; aspirin 81 mg Oral tab 1 tab daily [Active]; - PMHx: 19:16 CVA; jd3 - PSHx: 19:16 bipass surgery in MING legs; jd3 - Immunization history:: Adult Immunizations up to date, Client reports having NOT received the Covid vaccine. Flu vaccine is not up to date. - Social history:: Smoking status: Patient reports the use of cigarette tobacco products, smokes one-half pack cigarettes per day, smokes one pack cigarettes per day. ROS: 20:41 Constitutional: Negative for fever, chills, and weight loss, Eyes: Negative for injury, mh7 pain, redness, and discharge, ENT: Negative for injury, pain, and discharge, Neck: Negative for injury, pain, and swelling, Cardiovascular: Negative for chest pain, palpitations, and edema, Respiratory: Negative for shortness of breath, cough, wheezing, and pleuritic chest pain, Abdomen/GI: Negative for abdominal pain, nausea, vomiting, diarrhea, and constipation, Back: Negative for injury and pain, : Negative for injury, bleeding, discharge, and swelling, MS/Extremity: Negative for injury and deformity, Skin: Negative for injury, rash, and discoloration, Psych: Negative for depression, anxiety, suicide ideation, homicidal ideation, and hallucinations, Allergy/Immunology: Negative for hives, rash, and allergies, Endocrine: Negative for neck swelling, polydipsia, polyuria, polyphagia, and marked weight changes, Hematologic/Lymphatic: Negative for swollen nodes, abnormal bleeding, and unusual bruising. Exam: 20:41 Constitutional: This is a well developed, well nourished patient who is awake, alert, mh7 and in no acute distress. Head/Face: Normocephalic, atraumatic. Eyes: Pupils equal round and reactive to light, extra-ocular motions intact. Lids and lashes normal. Conjunctiva and sclera are non-icteric and not injected. Cornea within normal limits. Periorbital areas with no swelling, redness, or edema. Neck: Trachea midline, no thyromegaly or masses palpated, and no cervical lymphadenopathy. Supple, full range of motion without nuchal rigidity, or vertebral point tenderness. No Meningismus. Chest/axilla: Normal chest wall appearance and motion. Nontender with no deformity. No lesions are appreciated. Cardiovascular: Regular rate and rhythm with a normal S1 and S2. No gallops, murmurs, or rubs. Normal PMI, no JVD. No pulse deficits. Respiratory: Lungs have equal breath sounds bilaterally, clear to auscultation and percussion. No rales, rhonchi or wheezes noted. No increased work of breathing, no retractions or nasal flaring. Abdomen/GI: Soft, non-tender, with normal bowel sounds. No distension or tympany. No guarding or rebound. No evidence of tenderness throughout. Back: No spinal tenderness. No costovertebral tenderness. Full range of motion. Skin: Warm, dry with normal turgor. Normal color with no rashes, no lesions, and no evidence of cellulitis. MS/ Extremity: Pulses equal, no cyanosis. Neurovascular intact. Full, normal range of motion. Psych: Awake, alert, with orientation to person, place and time. Behavior, mood, and affect are within normal limits. 20:41 Radiologist reports: No acute intracranial abnormality. 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 20:41 Neuro: Orientation: is normal, Mentation: is normal, Memory: is normal, Cranial nerves: mh7 grossly normal, Cerebellar function: is grossly normal, Motor: strength is 5/5 in the left arm, right leg and left leg, Strength is 3/5 in the right hand interactive video technician, Sensation: no obvious gross deficits, Gait: ataxic, moves to the right. Deep tendon reflexes are normal, Babinski testing is normal, seizure activity, is not displayed by the patient, Abnormal movements: there are no abnormal movements. Vital Signs: 19:18 BP 182 / 93; Pulse 90; Resp 23 S; Temp 97.8(TE); Pulse Ox 97% on R/A; Weight 68.04 kg jd3 (R); Height 5 ft. 2 in. (157.48 cm) (R); Pain 1/10; 21:00 BP 161 / 74; Pulse 78; Resp 16; Pulse Ox 98% ; al4 21:57 BP 146 / 57; Pulse 83; Resp 20; Pulse Ox 95% on R/A; lp1 19:18 Body Mass Index 27.44 (68.04 kg, 157.48 cm) jd3 NIH Stroke Scale Scores: 20:41 NIHSS Score: 0 [facility] MDM: 22:16 Differential diagnosis: CVA, TIA, metabolic disorder. Data reviewed: vital signs, [facility] nurses notes, radiologic studies, CT scan. Data interpreted: Pulse oximetry: on room air is 95 %. Interpretation: normal. Counseling: I had a detailed discussion with the patient and/or guardian regarding: the historical points, exam findings, and any diagnostic results supporting the discharge/admit diagnosis, the presence of at least one elevated blood pressure reading (>120/80) during this emergency department visit, radiology results. Response to treatment: There is no appreciated change of the patient's symptoms at this time. Refusal of service: The patient/guardian displays adequate decision making capability and despite a detailed discussion of alternatives, benefits, risks, and consequences refuses: Admission to the hospital for further work-up and treatment, all lab tests, all X-rays. ED course: NAD, VSS, AA\T\O x4. Patient declined any further testing or possible admission and wants to go home now. Advised her that her symptoms are suspicious for a stroke and needs further work up including lab work and probably MRI. She still refused any further evaluation and will leave against medical advice. Explained the possibility of permanent disability and/or if symptoms worsen. She verbalized that she understood this information as presented. She knows that she can return to the ED if she has any concerns.. 22:27 Patient medically screened. [facility] 07/17 19:21 Order name: CT Head Brain wo Cont; Complete Time: 20:27 [facility] 07/17 20:40 Order name: XRAY Chest (1 view); Complete Time: 21:20 [facility] 07/17 20:40 Order name: EKG; Complete Time: 20:41 [facility] 07/17 20:40 Order name: Cardiac monitoring [facility] 07/17 20:40 Order name: EKG - Nurse/Tech [facility] 07/17 20:40 Order name: IV Saline Lock [facility] 07/17 20:40 Order name: Labs collected and sent [facility] 07/17 20:40 Order name: O2 Per Protocol [facility] 07/17 20:40 Order name: O2 Sat Monitoring [facility] 07/17 20:41 Order name: Urine Dipstick-Ancillary (obtain specimen) [facility] Administered Medications: No medications were administered Disposition Summary: 07/17/21 22:27 Left Against Medical Advice Location: Home [facility] Problem: new [facility] Symptoms: are unchanged [facility] Condition: Stable [facility] Diagnosis - Ataxic gait [facility] - Weakness - right hand [facility] - Facial Numbness [facility] Followup: [facility] - With: Private Physician - When: 24 Hours - Reason: Worsening of condition, Recheck today's complaints, Continuance of care, Re-evaluation by your physician Followup: [facility] - With: Bright Lopez MD - When: 24 Hours - Reason: Worsening of condition, Recheck today's complaints Discharge Instructions: - Discharge Summary Sheet [facility] - Weakness mh7 - Ataxia [facility] NIH Stroke Scale - NIH Stroke Score Date: 07/17/2021 Time: 20:41 Total Score = 0 1a. Level of Consciousness (LOC) - 0(Alert) 1b. Level of Consciousness (LOC) (Month \T\ Age) - 0(Both) 1c. LOC Commands (Open \T\ Closes Eyes/Gun Synchronizer) - 0(Both) 2. Best Gaze (Lateral Gaze Paresis) - 0(Normal) 3. Visual Field Loss - 0(No visual loss) 4. Facial Palsy - 0(Normal) 5a. Left Arm: Motor (10-second hold) - 0(No drift) 5b. Right Arm: Motor (10-second hold) - 0(No drift) 6a. Left Leg: Motor (5-second hold - always test supine) - 0(No drift) 6b. Right Leg: Motor (5-second hold - always test supine) - 0(No drift) 7. Limb Ataxia (finger/nose \T\ heel/sánchez - test with eyes open) - 0(Absent) 8. Sensory Loss (pinprick arms/legs/face) - 0(Normal) 9. Best Language: Aphasia (description/naming/reading) - 0(No aphasia) 10. Dysarthria (speech clarity - read or repeat words) - 0(Normal) 11. Extinction and Inattention (visual/tactile/auditory/spatial/personal) - 0(No abnormality) Initials: [facility] Signatures: Dispatcher [employer] Alexandre Harvey, CORKY-C WET FINISHER WOOL-Cla1 Matthew Cadet RN RN Elliot Reyes MD MD [facility]
--- NOTE | 2021-07-17 22:28 | ER ---
Nurse's Notes [facility] Name: Ting Samuel Age: 75 yrs Sex: Female : 1945 Arrival Date: 07/17/2021 Time: 19:03 Bed 2 Private MD: Diagnosis: Ataxic gait;Weakness-right hand;Facial Numbness Presentation: 07/17 19:14 Chief complaint: Patient states: "I have been having numbness in my face and in my jd3 right figures. this has been going on since yesterday afternoon. I am also having a splitting headache.". Coronavirus screen: At this time, the client does not indicate any symptoms associated with coronavirus-19. Ebola Screen: No symptoms or risks identified at this time. Initial Sepsis Screen: Does the patient meet any 2 criteria? No. Patient's initial sepsis screen is negative. Does the patient have a suspected source of infection? No. Patient's initial sepsis screen is negative. Risk Assessment: Do you want to hurt yourself or someone else? Patient reports no desire to harm self or others. Onset of symptoms was July 16, 2021. 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 Flu vaccine is not up to date. - Social history:: Smoking status: Patient reports the use of cigarette tobacco products, smokes one-half pack cigarettes per day, smokes one pack cigarettes per day. Screenin:00 Abuse screen: Denies threats or abuse. Denies injuries from another. Nutritional lp1 screening: No deficits noted. Tuberculosis screening: No symptoms or risk factors identified. Assessment: 20:57 General: Appears in no apparent distress. comfortable, Behavior is cooperative, al4 agitated. Pain: Denies pain. Neuro: Level of Consciousness is awake, alert, obeys commands, Oriented to person, place, time, situation, Speech is normal, Facial symmetry appears normal. Cardiovascular: Capillary refill < 3 seconds Patient's skin is warm and dry. Respiratory: Airway is patent Respiratory effort is unlabored. Musculoskeletal: Circulation, motion, and sensation intact. 21:55 Reassessment: Patient appears agitated on arrival into room and discussing plan of lp1 care, reports "I have to stay here? I hate hospitals. I wouldn't even have came in if I knew I was going to have to stay!"; Patient demonstrates understanding that she can refuse care, declines to have labs drawn and reports wanting to leave; Provider notified. 22:11 Reassessment: Dr. Yee at bedside to discuss care with patient and family member, lp1 risks of leaving AMA; Patient demonstrates understanding, states "I want to go home and if I need you, I'll come back". 22:13 Reassessment: Patient ambulated independently out of ED with family member. lp1 Vital Signs: 19:18 BP 182 / 93; Pulse 90; Resp 23 S; Temp 97.8(TE); Pulse Ox 97% on R/A; Weight 68.04 kg jd3 (R); Height 5 ft. 2 in. (157.48 cm) (R); Pain 1/10; 21:00 BP 161 / 74; Pulse 78; Resp 16; Pulse Ox 98% ; al4 21:57 BP 146 / 57; Pulse 83; Resp 20; Pulse Ox 95% on R/A; lp1 19:18 Body Mass Index 27.44 (68.04 kg, 157.48 cm) jd3 NIH Stroke Scale Scores: 20:41 NIHSS Score: 0 [facility] ED Course: 19:03 Patient arrived in ED. bp1 19:15 Triage completed. jd3 19:19 Arm band placed on. jd3 20:05 CT Head Brain wo Cont In Process Unspecified. EDMS 20:26 Elliot Yee MD is Attending Physician. 7 21:00 Patient has correct armband on for positive identification. Placed in gown. Bed in low lp1 position. payroll supervisor on. Pulse ox on. NIBP on. 21:06 XRAY Chest (1 view) In Process Unspecified. EDMS 22:12 No provider procedures requiring assistance completed. Patient did not have IV access lp1 during this emergency room visit. 22:25 Bright Lopez MD is Referral Physician. [facility] 22:41 Chandni Lino, RN is Primary Nurse. lp1 Administered Medications: No medications were administered Outcome: 22:12 AMA AMA form signed lp1 22:12 Condition: stable 22:12 Instructed on leaving AMA, returning if symptoms worsen 22:15 Patient left the ED. lp1 NIH Stroke Scale - NIH Stroke Score Date: 07/17/2021 Time: 20:41 Total Score = 0 1a. Level of Consciousness (LOC) - 0(Alert) 1b. Level of Consciousness (LOC) (Month \\T\\ Age) - 0(Both) 1c. LOC Commands (Open \\T\\ Closes Eyes/Humanities Professor) - 0(Both) 2. Best Gaze (Lateral Gaze Paresis) - 0(Normal) 3. Visual Field Loss - 0(No visual loss) 4. Facial Palsy - 0(Normal) 5a. Left Arm: Motor (10-second hold) - 0(No drift) 5b. Right Arm: Motor (10-second hold) - 0(No drift) 6a. Left Leg: Motor (5-second hold - always test supine) - 0(No drift) 6b. Right Leg: Motor (5-second hold - always test supine) - 0(No drift) 7. Limb Ataxia (finger/nose \\T\\ heel/sánchez - test with eyes open) - 0(Absent) 8. Sensory Loss (pinprick arms/legs/face) - 0(Normal) 9. Best Language: Aphasia (description/naming/reading) - 0(No aphasia) 10. Dysarthria (speech clarity - read or repeat words) - 0(Normal) 11. Extinction and Inattention (visual/tactile/auditory/spatial/personal) - 0(No abnormality) Initials: [facility] Signatures: Dispatcher [employer] EDMS Chandni Lino RN RN lp1 Matthew Cadet RN RN Priyanka Zimmerman Maurice, MD MD 7 Zachery Pacheco4 Corrections: (The following items were deleted from the chart) 21:14 20:57 General: Appears in no apparent distress. comfortable, Behavior is al4 cooperative, agitated, al4 : 20:57 Pain: Denies pain. al4 al4 : 20:57 Neuro: Level of Consciousness is awake, alert, obeys commands, Oriented al4 to person, place, time, situation, Mdm Sr are equal bilaterally Moves all extremities. Speech is normal, Facial symmetry appears normal, al4 : 20:57 Cardiovascular: Capillary refill < 3 seconds Patient's skin is warm and al4 dry. al4 : 20:57 Respiratory: Airway is patent Respiratory effort is unlabored, al4 Respiratory pattern is regular, al4 20:57 Musculoskeletal: Circulation, motion, and sensation intact. al4 al4 07/18 06:26 04/ 22:41 Patient left the ED. lp1 lp1
[2021-07-18 06:45] VITALS: TEMP 97.8
[2021-07-18 06:48] VITALS: BP 146/57; O2SAT 95
== END 2021-07-17 22:41 | disposition left against medical advice (07) ==
LOC: ER 19:00
DX: R27.0 Ataxia, unspecified (principal); R53.1 Weakness; F17.210 Nicotine dependence, cigarettes, uncomplicated; Z79.82 Long term (current) use of aspirin; Z86.73 Personal history of transient ischemic attack (TIA), and cerebral infarction without residual deficits; Z88.5 Allergy status to narcotic agent
CPT/HCPCS: 70450; 71045; 93005; 99284

== ENCOUNTER 2021-08-25 16:04 | Emergency (ER) | payer OTHER ==
--- OUTSIDE RECORDS SUMMARY | 2021-08-25 16:07 | XMS REPORT | Clinical Summary ---
:1945 Author Organization [facility] MD [facility] Address [address] [place] [address] Care Team Providers Name Role Phone Tanner [...] Vaccination (1) 09/28/1950 Results Not on fileafter 08/25/2020 Insurance Payer Benefit Plan / Subscriber ID Effective Dates Phone Addre ss Type Group HUMANA HUMANA CHOICE [id number] 2011-Presen [address] [address] Medicare MEDIC[place] [address] ([place]) [address] [address] Ting Samuel Personal/Family Self [address] [place] [address] (Home) Road [address] [place] [phone] Ting Samuel Personal/Family Self [address] [place] [address] ([place]) [address] [phone] Advance Directives Type Date Recorded Patient Servicer Explanati on Advance Directives: Medical Power of 10/12/2013 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 Hollow Handle Bench 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 Relationship Specialty Start Date End Date Tanner Mullen, PCP - External Primary 09/09/13 MD Care Provider Kei Lemus PCP - General Breast Medical 07/05/16 MD [facility] [address] [place] [id number] Chandni Vargas, Physician Soaker Soda Worker 06/15/[address] [place] [id number] Leigha Verdin, Nurse Practitioner 06/15/[address] [id number] Daksha Ley, Nurse Practitioner 06/15/15 CONTROL SYSTEM MANAGER Shantanu Barry MD Physician 06/15/[address] [place] [id number] Kei Lemus Physician 06/15/15 MD Matt [address] [place] [id number] Dilshad Zeng, Physician 06/15/[address] [place] [id number] Verónica Birmingham MD Physician 06/15/[address] [place] [id number] Quentin Gale MD Physician 06/15/15 Dipak Mejias MD Physician 06/15/[address] [place] [id number] Sobeida Porter PA Physician Soaker Soda Worker 06/15/[address] [place] [address]. [place] [address] Angelic Crump MD Physician 06/15/15
--- OUTSIDE RECORDS SUMMARY | 2021-08-25 16:08 | XMS REPORT | Continuity of Care Document ---
:1945 Author Organization [facility] t Address [address] [place] [address] Care Team Providers Name Role Phone Deven Mullen MD Primary Care Physician NADIA RIVAS Attending Clinician Unavailable Marisol DIALLO Attending Clinician Unavailable Marisol Diallo DO Attending Clinician Alber RN, P Attending Clinician Unavailable [facility], [facility] Attending Clinician Unavailable Bernardo Ervin Attending Clinician NADIA RIVAS Admitting Clinician Unavailable Payers Payer Name Policy Type Policy Number Effective Date Expiration Date S ource [employer] MEDICARE [id number] 2018 ADV 00:00:00 [employer] CHOICE [id number] 2011 00:00:00 Problems Condition Condition Condition Status Onset Resolution Last Treating Co mments Source Name Details Category Date Date Treatment Clinician Date Bladder Bladder Disease Active 2020-0 Univers incontinen incontinen 5-08 it y of ce ce 00:00: [place] [address] Medical Branch Bowel Bowel Disease Active 2020-0 Univers incontinen incontinen 5-08 it y of ce ce 00:00: [place] [address] Medical Branch COPD COPD Disease Active 2020-0 Univers (chronic (chronic 5-08 ity [place] obstructiv [place]iv [place] 00 Medical pulmonary pulmonary Bran ch disease) disease) with with chronic chronic bronchitis bronchitis PAD PAD Disease Active 2020-0 Univers (periphera (periphera 5-08 it y of l artery l artery 00:00: [place] disease) disease) 00 Medica l Branch PAD PAD Disease Active Univers (periphera (periphera 5-08 it y of l artery l artery 00:00: [place] disease) disease) 00 Medica l Branch Acute Acute Disease Active Univers midline midline 8-02 ity of low back low back 00:00: [place] pain pain 00 Medical without without Branch sciatica sciatica Cerebrovas Cerebrovas Disease Active U nivers cular cular 3-29 ity of accident accident 00:00: [place] (CVA) [...] Propensi Active Nausea Univers ty to and/or 329 ity of adverse Vomiting 00:00: [place] reaction 00 Medical s Branch CODEINE DRUG Active N/V Univers INGREDI 329 ity of 00:00: [place] 00 Medical Branch Tetracyc Propensi Active Unknown - "Black Uni vers lines ty to See comments 3-31 tongue" ity of adverse 00:00: [place] reaction 00 Medical s Branch TETRACYC Drug Active Unknown-Cmnt Un adams LINES Class 3-31 ity of 00:00: [place] 00 Medical Branch Tetracyc Propensi Active Unknown - "Black Uni vers lines ty to See comments 3-31 tongue" ity of adverse 00:00: [place] reaction 00 Medical s Branch TETRACYC Allergy Active Med Other [facility] Codeine Propensi Active Unknown - Nausea Univ ers Sulfate ty to See comments 1-22 and ity of adverse 00:00: vomiting [place] reaction 00 Medical s Branch Hydrocod Propensi Active Unknown - Nausea Uni vers one-Acet ty to See comments 1-22 and it y of aminophe adverse 00:00: vomiting [place] n reaction 00 Medical s Branch Naproxen Propensi Active Unknown - Advised Un adams Sodium ty to See comments 1-22 not to ity of adverse 00:00: take this [place] reaction 00 medicatio Medic al s n Branch CODEINE DRUG Active Unknown-Cmnt Uni vers SULFATE INGREDI - ity of 00:00: [place] 00 Medical Branch HYDROCOD DRUG Active Unknown-Cmnt Un adams ONE-ACET - ity of AMINOPHE 00:00: [place] N 00 Medical Branch NAPROXEN DRUG Active Unknown-Cmnt Un adams SODIUM INGREDI - ity of 00:00: [place] 00 [facility] Branch NAPROXEN Allergy Active High [facility] SODIUM 1-22 [facility] CODEINE Allergy Active Med N\\T\\V [facility] Center HYDROCOD Allergy Active Med [address] [facility] ONE-ACET -22 [facility] AMINOPHE 00:00: Medical N 00 Center NO KNOWN Allergy Active [facility] ALLERGIE S NO KNOWN Drug Active Univers ALLERGIE Class ity of S [facility] Family History Family Member Diagnosis Comments Start Date Stop Date Source Natural mother Breast cancer MD Jeovanny austin Social History Social Habit Start Date Stop Date Quantity Comments Source History of tobacco Cigarette Smoker MD Marte use Exposure to 2021-08-13 2021-08-23 Unable to assess Univers ity of SARS-CoV-2 (event) 00:00:00 12:44:00 [facility] Tobacco use and 2019-08-14 2019-08-14 Never used Universit y of exposure 00:00:00 00:00:00 [facility] Alcohol intake 2015-12-29 2015-12-29 Current MD Rico miller 00:00:00 00:00:00 non-drinker of alcohol (finding) Cigarettes smoked 2015-07-07 2015-07-07 MD Jeovanny austin current (pack per 00:00:00 00:00:00 day) - Reported Sex [birth year] At [birth year] MD Ramos on 00:00:00 00:00:00 Smoking Status Start Date Stop Date Source Never smoker [facility] Smokes tobacco daily 2015-07-07 00:00:00 MD Jeovanny austin Medications Ordered Filled Start Stop Current Ordering Indication Dosage Frequency Signature Comments Components Source Medication Medication Date Date Medication? Clinician (SIG) Name Name albuterol 2021- No 5mg 5 mg, Univer s (PROVENTIL) 08-23 Inhalation i ty of 2.5 mg /3 21:45: 20:42 , [place]CE, 1 [place] mL (0.083 00 :00 dose, On Medica l %) [facility] Branch nebulizer 08/23/21 at solution 5 1645, GRECIA mg ipratropium 2021- No .5mg 0.5 mg, Un adams (ATROVENT) 08-23 Inhalation it y of 0.02 % 21:00: 18:12 , QID, [place] nebulizer 00 :39 First dose Medi trey solution on Sat Branch 0.5 mg 08/23/21 at 1600, Until Discontinu ed, Routine albuterol 2021- No 5mg 5 mg, Univer s (PROVENTIL) 08-23 Inhalation i ty of 2.5 mg /3 20:15: 19:18 , ONCE, 1 [place] mL (0.083 00 :00 dose, On Medica l %) [facility] nebulizer 08/23/21 at solution 5 1515, GRECIA mg magnesium 2021- No 2g 2 g, IV Univ ers sulfate in 08-23 Piggyback, it y of water 2 19:15: 18:30 Administer Anastacio as gram/50 mL 00 :00 over 60 Medica l (4 %) Minutes, Branch infusion 2 ONCE, 1 g dose, On Sat08/23/21 at 1415, Routine methylpredn 2021- No 125mg 125 mg, U nivers isolone sod 08-23 Slow IV ity of succ 19:15: 18:12 Push, ONCE [place] (SOLU-MEDRO 00 :00 NOW, 1 Medica l L) dose, On Branch injection Wed 125 mg 08/23/21 at 1415, GRECIA albuterol 2021-0 2021- No 5mg 5 mg, Univer s (PROVENTIL) 08-2318 Inhalation i ty of 2.5 mg /3 19:15: 18:07 , ONCE, 1 [place] mL (0.083 00 :00 dose, On Medica l %) Wed Branch nebulizer 08/23/21 at solution 5 1415, GRECIA mg lisinopril 2019- No 5mg Take 5 mg U nivers 5 mg tablet 08-13 05-08 by mouth. it y of 18:22: 00:00 [place] 46 :00 Medical Branch albuterol 2019-0 Yes 2{puff} Inhale 2 U nivers 90 5-08 Puffs. ity of mcg/actuati 18:12: [place] on inhaler 19 Medical Branch albuterol 2019-0 Yes 2{puff} Inhale 2 U nivers 90 5-08 Puffs. ity of mcg/actuati 18:12: [place] on inhaler 19 Medical Branch calcium 2020-0 Yes 1200mg/ Take 1,200 U nivers carbonate 5-08 mL mg/mL by ity of (CALCIUM 18:04: mouth. [place] 300 ORAL) 17 Medical Branch ascorbic 2020-0 Yes Univers acid,sod-zi 5-08 ity of nc ox,gluc 18:04: [place] (ZINC AND 17 Medical C) 120-20 Branch mg Lozg calcium 2020-0 Yes 1200mg/ Take 1,200 U nivers carbonate 5-08 mL mg/mL by ity of (CALCIUM 18:04: mouth. [place] 300 ORAL) 17 Medical Branch ascorbic 2020-0 Yes Univers acid,sod-zi 5-08 ity of nc ox,gluc 18:04: [place] (ZINC AND 17 Medical C) 120-20 Branch mg Lozg BIOTIN ORAL 2020-0 Yes Take by Un adams 5-08 mouth. ity of 18:03: [place] 13 Medical Branch Cholecalcif 2020-0 Yes 400U Take 400 Un adams nancy, 5-08 Units by ity of Vitamin D3, 18:03: [place]. [place] 125 mcg 13 Medical (5,000 Branch unit) tablet BIOTIN ORAL 2020-0 Yes Take by Un adams 5-08 mouth. ity of 18:03: [place] 13 Medical Branch Cholecalcif 2020-0 Yes 400U Take 400 Un adams nancy, 5-08 Units by ity of Vitamin D3, 18:03: [place]. [place] 125 mcg 13 Medical (5,000 Branch unit) tablet coconut oil 2020-0 Yes 1mg Take 1 mg U nivers 1,000 mg 5-08 by mouth. ity of Cap 18:01: [place] [address] Medical Branch coconut oil 2020-0 Yes 1mg Take 1 mg U nivers 1,000 mg 5-08 by mouth. ity of Cap 18:01: [place] [address] Medical Branch albuterol 2020-0 Yes 2{puff} Inhale 2 U nivers 90 5-08 Puffs. ity of mcg/actuati 13:12: [place] on inhaler 19 Medical Branch calcium 2020-0 Yes 1200mg/ Take 1,200 U nivers carbonate 5-08 mL mg/mL by ity of (CALCIUM 13:04: mouth. [place] 300 ORAL) 17 Medical Branch ascorbic 2020-0 Yes Univers acid,sod-zi 5-08 ity of nc ox,gluc 13:04: [place] (ZINC AND 17 Medical C) 120-20 Branch mg Lozg Cholecalcif 2020-0 Yes 400U Take 400 Un adams nancy, 5-08 Units by ity of Vitamin D3, 13:03: [place]. [place] 125 mcg 13 Medical (5,000 Branch unit) tablet BIOTIN ORAL 2020-0 Yes Take by Un adams 5-08 mouth. ity of 13:03: [place] [address] Medical Branch coconut oil 2020-0 Yes 1mg Take 1 mg U nivers 1,000 mg 5-08 by mouth. ity of Cap 13:01: [place] [address] Medical Branch fluticasone 2020-0 Yes [id number] 1{inhal Inhale 1 Univers -umeclidin- 5-08 er} Inhaler ity o f vilanter 00:00: daily. [place] (TRELEGY 00 Medical ELLIPTA) Branch 100-62.5-25 mcg DsDv fluticasone 2020-0 Yes [id number] 1{inhal Inhale 1 Univers -umeclidin- 5-08 er} Inhaler ity o f vilanter 00:00: daily. [place] (TRELEGY 00 Medical ELLIPTA) Branch 100-62.5-25 mcg DsDv fluticasone 2020-0 Yes [id number] 1{inhal Inhale 1 Univers -umeclidin- 5-08 er} Inhaler ity o f vilanter 00:00: daily. [place] (TRELEGY 00 Medical ELLIPTA) Branch 100-62.5-25 mcg DsDv Ascorbic 2020-0 Yes Univers Acid 5-07 ity of (VITAMIN C) 00:00: [place] 500 mg CpSR 00 Medical Branch Ascorbic 2020-0 Yes Univers Acid 5-07 ity of (VITAMIN C) 00:00: [place] 500 mg CpSR 00 Medical Branch Ascorbic 2020-0 Yes Univers Acid 5-07 ity of (VITAMIN C) 00:00: [place] 500 mg CpSR 00 Medical Branch neomycin-po 2019-0 2020- No Unive rs lymyxin-dex 5-07 05-08 ity of amethasone 00:00: 00:00 [place] 3.5 00 :00 Medical mg/g-10,000 Branch unit/g-0.1 % ophthalmic ointment hydroxychlo 2019-0 Yes Univer s roquine 200 5-06 ity of mg tablet 00:00: [place] 00 Medical Branch azithromyci 2020-0 Yes Univer s n 5-06 ity of (ZITHROMAX) 00:00: [place] 500 mg 00 Medical tablet Branch hydroxychlo 2020-0 Yes Univer s roquine 200 5-06 ity of mg tablet 00:00: [place] 00 Medical Branch azithromyci 2020-0 Yes Univer s n 5-06 ity of (ZITHROMAX) 00:00: [place] 500 mg 00 Medical tablet Branch hydroxychlo 2020-0 Yes Univer s roquine 200 5-06 ity of mg tablet 00:00: [place] 00 Medical Branch azithromyci 2020-0 Yes Univer s n 5-06 ity of (ZITHROMAX) 00:00: [place] 500 mg 00 Medical tablet Branch amLODIPine 2019-0 2020- No Univer s 5 mg tablet -03 05-08 ity of 00:00: 00:00 [place] 00 :00 Medical Branch potassium 2020-0 Yes Univers chloride 8 4-02 ity of mEq CR 00:00: [place] capsule 00 Medical Branch potassium 2020-0 Yes Univers chloride 8 4-02 ity of mEq CR 00:00: [place] capsule 00 Medical Branch potassium Yes Univers chloride 8 4-02 ity of mEq CR 00:00: [place] capsule 00 Medical Branch levoFLOXaci 2020- No Unive rs n 500 mg 2-25 05-08 ity of tablet 00:00: 00:00 [place] 00 :00 Medical Branch methylPREDN 2020- No Unive rs ISolone 4 2 05-08 ity of mg tablets 00:00: 00:00 [place] 00 :00 Medical Branch amLODIPine 2019- No Univer s 5 mg tablet 12-16 05-08 ity of 00:00: 00:00 [place] 00 :00 Medical Branch furosemide Yes Univers (LASIX) 80 3-11 ity of mg tablet 00:00: [place] 00 Medical Branch potassium Yes Univers chloride 3-11 ity of (MICRO-K 00:00: [place] ORAL) 00 Medical Branch furosemide Yes Univers (LASIX) 80 3-11 ity of mg tablet 00:00: [place] Medical Branch potassium Yes Univers chloride 3-11 ity of (MICRO-K 00:00: [place] ORAL) 00 Medical Branch furosemide Yes Univers (LASIX) 80 3-11 ity of mg tablet 00:00: [place] 00 Medical Branch potassium Yes Univers chloride 3-11 ity of (MICRO-K 00:00: [place] ORAL) 00 Medical Branch BIOTIN ORAL Yes Take by 3-30 mouth Anderso 12:55: daily. n 42 CALCIUM Yes 1200mg/ Take 1,200 M D CARBONATE/V 3-30 mL mg/mL by Jeovanny rso ITAMIN D3 12:55: mouth n (CALCIUM+D 42 daily. ORAL) GUAIFENESIN Yes 1{tbl} Take 1 MD /PSEUDOEPHE 3-30 tablet by And guille RAMIREZ HCL 12:55: mouth n (MUCINEX D 42 daily. ORAL) Reported on 07/05/2016 VITAMIN E, Yes 400mg Take 400 MD DL,TOCOPHER 3-30 mg by [place] YL ACET, 12:55: mouth. 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 anastrozole 2020- No 1mg Take 1 mg Univers 1 mg tablet 12-14 05-08 by mouth ity of 00:00: 00:00 [place] 00 :00 Medical Branch amLODIPine Yes Univers 2.5 mg 9- ity of tablet 00:00: [place] 00 Medical Branch amLODIPine 0 Yes Univers 2.5 mg 9-29 ity of tablet 00:00: [place] 00 [facility] Branch amLODIPine Yes Univers 2.5 mg 9-29 ity of tablet 00:00: [place] 00 Medical Branch amLODIPine Yes (PINKY) 9-29 Anderso 2.5 mg 00:00: n tablet 00 aspirin 1999- Yes Univers (ADULT LOW 1-15 ity of DOSE 00:00: [place] ASPIRIN) 81 00 Medical mg EC Branch tablet aspirin Yes Univers (ADULT LOW 1-15 ity of DOSE 00:00: [place] ASPIRIN) 81 00 Medical mg EC Branch tablet aspirin Yes Univers (ADULT LOW 1-15 ity of DOSE 00:00: [place] ASPIRIN) 81 00 Medical mg EC Branch tablet Vital Signs Vital Name Observation Time Observation Value Comments Source HEIGHT 2020-08-17 06:20:00 154.9 cm WEIGHT 2020-08-17 06:20:00 68.539 kg HEIGHT 2020-08-16 11:55:00 154.9 cm WEIGHT 2020-08-16 11:55:00 68.04 kg WEIGHT 2020-06-23 09:54:00 68.901 kg HEIGHT 2020-06-22 06:24:00 156.2 cm WEIGHT 2020-06-22 06:24:00 65 kg HEIGHT 2020-06-20 10:58:00 156.2 cm WEIGHT 2020-06-20 10:58:00 68.04 kg Systolic blood 2021-08-23 21:00:00 147 mm[Hg] Univer sity of pressure [facility] Diastolic blood 2021-08-23 21:00:00 67 mm[Hg] Unive rsity of [facility] Heart rate 2021-08-23 21:00:00 92 /min [facility] Respiratory rate 2021-08-23 21:00:00 17 /min [facility] Oxygen saturation in 2021-08-23 21:00:00 93 /min [facility] Arterial blood by [facility] Pulse oximetry [place] Body temperature 2021-08-23 17:51:00 37 Laly [facility] Body weight 2021-08-23 17:51:00 63.957 kg [facility] BMI 2021-08-23 17:51:00 27.54 kg/m2 [facility] HEIGHT 2020-08-30 09:30:00 154.9 cm WEIGHT 2020-08-30 [...] 18:01:00 119 mm[Hg] Univer sity of pressure [facility] Diastolic blood 2019-08-14 18:01:00 76 mm[Hg] Unive rsity of pressure [facility] Heart rate 2019-08-14 18:01:00 77 /min [facility] Body temperature 2019-08-14 18:01:00 36.67 Laly Univ ersity [facility] Respiratory rate 2019-08-14 18:01:00 20 /[facility] height 2019-08-14 18:01:00 152.4 cm [facility] Body weight 2019-08-14 18:01:00 70.308 kg [facility] BMI 2019-08-14 18:01:00 30.27 kg/m2 [facility] Oxygen saturation in 2019-08-14 18:01:00 99 /min University Arterial blood by [facility] Pulse oximetry Branch Procedures Procedure Date / Time Performed Performing Clinician Sourc e LIPASE 2021-08-23 18:04:00 Eliana Diallo [facility] TROPONIN I 2021-08-23 18:04:00 Eliana Diallo [facility] COMP. METABOLIC PANEL 2021-08-23 18:04:00 Eliana Diallo [facility] ([id number]) [facility] CBC WITH DIFF 2021-08-23 18:04:00 Eliana Diallo [facility] XR CHEST 1 VW 2021-08-23 18:02:01 Eliana Diallo [facility] NOTICE OF PRIVACY 2021-08-23 17:45:10 Doctor Unassigned, No Univ [facility] Name [facility] CONSENT/REFUSAL FOR 2021-08-23 17:44:57 Doctor Unassigned, No Un [facility] DIAGNOSIS AND Name [facility] TREATMENT Plan of Care Planned Activity Planned Date Details Comments Source Future Scheduled Test 1950-09-28 00:00:00 COVID-19 Vaccination MD Marte (1) [code = COVID-19 Vaccination (1)] Encounters Start End Encounter Admission Attending Care Care Encounter Source Date/Time Date/Time Type Type Clinicians Facility Department ID 2021-01-14 Inpatient PABLO RIVAS Surgery [id number] [facility] 16:26:39 GABI 2021-01-14 Inpatient ROB, [facility] Surgery [id number] [facility] 07:34:27 GABI 2021-08-23 2021-08-23 Emergency X KAITLIN DIALLO ERT [id number] Univers 12:50:00 16:33:00 ELIANA wen [facility] 2021-08-23 2021-08-23 Emergency KAITLIN Diallo [id number] Univers 12:50:00 16:33:00 Eliana BENAVIDES [id number] ity [facility] [id number] [facility] [id number] [facility] 084 Branch 2020-08-30 2020-08-30 [id number] [facility] 00:00:00 00:00:00 GABI 2020-08-16 2020-08-16 Outpatient MISAEL SHAH [facility] [id number] [facility] 00:00:00 00:00:00 2020-08-03 2020-08-03 Outpatient PABLO MARQUEZ [facility] [id number] [facility] 00:00:00 00:00:00 GABI 2020-08-02 2020-08-02 [facility] [id number] [facility] 00:00:00 00:00:00 GABI 2020-07-05 2020-07-05 [facility] [id number] [facility] 00:00:00 00:00:00 GABI 2020-06-20 2020-06-20 Outpatient [facility] [id number] [facility] 00:00:00 00:00:00 2020-06-16 2020-06-16 [facility] [id number] [facility] 00:00:00 00:00:00 GABI 2019-08-15 2019-08-15 Telephone GEE Campo [id number] Univers 00:00:00 00:00:00 Tiara YEUNG [id number] ity of [facility] [id number] Anastacio as [id number] [address] 2019-08-14 2019-08-14 Outpatient [facility] [id number] Univers 13:20:00 13:20:00 ity [facility] 2019-08-14 2019-08-14 Urgent Pob1, Acute Care Clinic [facility] [id number]. [id number] Univers 12:53:03 13:13:03 Care Ph[facility]ong [id number] [id number] Anastacio as Professio [phone] [address] Office Building One Results Test Description Test Time Test Comments Results Result Comments Source TROPONIN I 2021-08-23 18:44:20 Test Item Value Reference Range Interpretation Comme nts TROPONIN I (test code = 0.003 ng/mL See_Comment [Au tomated message] The 8210000167) system which [employer] nerated this result tra nsmitted reference range : <=0.034. The reference r lulu was not used to int erpret this result as normal/abnormal . JERRY (test code = JERRY) Reference (Normal) Range (defined by the 99th percentile reference limit): <= 0.034 ng/mL Note: Cardiac troponin begins to rise 3-4 hours after the onset of ischemia. Repeat in 4-6 hours if the sample was drawn within 3-4 hours of the onset of the symptom and found normal. Diagnosis of myocardial injury is made with acute changes in cTn concentrations with at least one serial sample above the 99th percentile upper reference limit (URL), taken together with the patient's clinical presentation. Biotin has been reported to cause a negative bias, interpret results relative to patient's use of biotin. Lab Interpretation Normal (test code = 96957-0) [facility]. METABOLIC PANEL ([id number])2021-08-23 18:32:38 Test Item Value Reference Range Interpretation Comments NA (test code = 139 mmol/L 135-145 2370752971) K (test code = 3.7 mmol/L 3.5-5.0 7361658955) CL (test code = 95 mmol/L 98-108 L 7198389908) CO2 TOTAL (test code = 35 mmol/L 23-31 H 4549253037) AGAP (test code = 2-16 7367443673) BUN (test code = 18 mg/dL 7-23 6601325885) GLUCOSE (test code = 125 mg/dL 70-110 H 5688103924) CREATININE (test code = 0.91 mg/dL 0.50-1.04 0723648812) TOTAL BILI (test code = 0.7 mg/dL 0.1-1.6 5447485468) CALCIUM (test code = 10.5 mg/dL 8.6-10.6 7389399551) T PROTEIN (test code = 7.4 g/dL 6.3-8.2 2800465454) ALBUMIN (test code = 4.7 g/dL 3.5-5.0 5767781726) ALK PHOS (test code = 57 U/L 34-122 4539146033) ALTv (test code = 18 U/L 5-35 1742-6) AST(SGOT) (test code = 23 U/L 13-40 1995941645) eGFR (test code = mL/min/1.73m2 7558275875) JERRY (test code = JERYR) Association of Glomerular Filtration Rate (GFR) and Staging of Kidney Disease* + --+ --+ ------+| GFR (mL/min/1.73 m2) ?| With Kidney Damage ?| ?Without Kidney Damage+ --------+ --------+ +| ?>90 ?| ?Stage one ?| ? Normal ?+ ---+ ---+ -------+| ?60-89 ?| ?Stage two ?| ? Decreased GFR ? + --+ --+ ------+| ?30-59 ?| ?Stage three ?| ? Stage three ? + --+ --+ ------+| ?15-29 ?| ?Stage four ? | ? Stage four ?+ ---+ ---+ -------+| ?<15 (or dialysis) ? ?| ?Stage five ? | ? Stage five ?+ ---+ ---+ -------+ *Each stage assumes the associated GFR level has been in effect for at least three months. ?Stages 1 to 5, with or without kidney disease, indicate chronic kidney disease. Notes: Determination of stages one and two (with eGFR >59mL/min/1.73 m2) requires estimation of kidney damage for at least three months as defined by structural or functional abnormalities of the kidney, manifested by either:Pathological abnormalities or Markers of kidney damage (including abnormalities in the composition of the blood or urine or abnormalities in imaging tests). Lab Interpretation Abnormal (test code = 78598-2) [facility] [id number] 18:32:17 Test Item Value Reference Range Interpretation Comments LIPASE (test code = 9279701953) 89 U/L 0-220 Lab Interpretation (test code = Normal 79423-8) [facility] [id number] 18:27:38 Test Item Value Reference Range Interpretation Comments WBC (test code = See_Comment H [Automated 8790-2) message] The sy stem which generated this result transmitted reference range : 4.30 - 11.10 10*3/?L. The reference range was not used to interpret this result as normal/abnormal . RBC (test code = See_Comment [Automated 789-8) message] The sy stem which generated this result transmitted reference range : 3.93 - 5.25 10*6/?L. The reference range was not used to interpret this result as normal/abnormal . HGB (test code = 16.3 g/dL 11.6-15.0 H 718-7) HCT (test code = 48.4 % 35.7-45.2 H 4544-3) MCV (test code = 92.2 fL 80.6-95.5 787-2) MCH (test code = 31.0 pg 25.9-32.8 785-6) MCHC (test code = 33.7 g/dL 31.6-35.1 786-4) RDW-SD (test code = 47.7 fL 39.0-49.9 80500-1) RDW-CV (test code = 14.1 % 12.0-15.5 788-0) PLT (test code = See_Comment [Automated 777-3) message] The sy stem which generated this result transmitted reference range : 166 - 358 10*3/ ?L. The reference r lulu was not used to interpret this result as normal/abnormal . MPV (test code = 11.2 fL 9.5-12.9 66096-8) NRBC/100 WBC (test See_Comment [Automat ed code = 8749696362) message] The system which generated this result transmitted reference range : 0.0 - 10.0 /100 WBCs. The refer ence range was not u sed to interpret th is result as normal/abnormal . NRBC x10^3 (test code <0.01 See_Comment [Auto mated = 4558548645) message] The s ystem which generated this result transmitted reference range : 10*3/?L. The reference range was not used to interpret this result as normal/abnormal . GRAN MAT (NEUT) % 70.4 % (test code = 770-8) IMM GRAN % (test code 0.50 % = 5634037359) LYMPH % (test code = 20.9 % 736-9) MONO % (test code = 5.9 % 5905-5) EOS % (test code = 1.2 % 713-8) BASO % (test code = 1.1 % 706-2) GRAN MAT x10^3(ANC) 9.71 10*3/uL 1.88-7.09 H (test code = 9180584672) IMM GRAN x10^3 (test 0.07 10*3/uL 0.00-0.06 H code = 4209992845) LYMPH x10^3 (test code 2.88 10*3/uL 1.32-3.29 = 731-0) MONO x10^3 (test code 0.82 10*3/uL 0.33-0.92 = 742-7) EOS x10^3 (test code = 0.16 10*3/uL 0.03-0.39 711-2) BASO x10^3 (test code 0.15 10*3/uL 0.01-0.07 H = 704-7) Lab Interpretation Abnormal (test code = 23825-3) [facility] [facility] [id number] 07:02:00 Test Item Value Reference Range Interpretation Comments SODIUM (BEAKER) 135 meq/L 136-145 L (test code = 381) POTASSIUM (BEAKER) 4.4 meq/L 3.5-5.1 (test code = 379) CHLORIDE (BEAKER) 101 meq/L 98-107 (test code = 382) CO2 (BEAKER) (test 25 meq/L 22-29 code = 355) BLOOD UREA NITROGEN 11 mg/dL 7-21 (BEAKER) (test code = 354) CREATININE (BEAKER) 0.78 mg/dL 0.57-1.25 (test code = 358) GLUCOSE RANDOM 105 mg/dL 70-105 (BEAKER) (test code = 652) CALCIUM (BEAKER) 8.9 mg/dL 8.4-10.2 (test code = 697) EGFR (BEAKER) (test 72 mL/min/1.73 ESTIMA SERAFIN GFR IS code = 1092) sq m NOT ACCURATE CREATININE CLEARANCE IN PREDICTING GLOMERULAR FILTRATION RATE . ESTIMATED GFR I S NOT APPLICABLE FOR DIALYSIS PATIEN TS. Obstetric Assistant ID - KATHY MCBC W/PLT COUNT & AUTO [id number] 06:37:00 Test Item Value Reference Range Interpretation [...] PERCENT (BEAKER) (test code = 2801) PROTHROMBIN [id number] 06:26:00 Test Item Value Reference Range Interpretation Comments PROTIME (BEAKER) 13.1 seconds 11.9-14.2 (test code = 759) INR (BEAKER) (test 1.03 See_Comment [Automat ed message] code = 370) The system Seen generated this result transmitted ref erence range: <=5.90. The reference range was not used to int erpret this result as normal/abnormal . Effective 09/03/2018: PT Reference Range ChangeNew: 11.9-14.2 Previous: 11.7- 14.7RECOMMENDED COUMADIN/WARFARIN INR THERAPY RANGESSTANDARD DOSE: 2.0-3.0 Includes: PROPHYLAXIS for venous thrombosis, systemic embolization; TREATMENT for venous thrombosis and/or pulmonary embolus.HIGH RISK: Target INR is2.5-3.5 for patients wiht mechanical heart valves.[id number] 06:23:00 Test Item Value Reference Range Interpretation Comments PARTIAL THROMBOPLASTIN TIME 27.9 seconds 22.5-36.0 (BEAKER) (test code = 760) GLUCOSE-STAT [id number] 10:17:00 Test Item Value Reference Range Interpretation Comments GLUCOSE RANDOM (BEAKER) (test code 111 mg/dL 70-110 H = 652) POTASSIUM-STAT [id number] 10:17:00 Test Item Value Reference Range Interpretation Comments POTASSIUM (BEAKER) (test code = 3.2 meq/L 3.6-5.5 L 379) SODIUM NA-STAT [id number] 10:16:00 Test Item Value Reference Range Interpretation Comments SODIUM (BEAKER) (test code = 381) 143 meq/L 136-145 HGB/HCT (H&H) - STAT [id number] 10:16:00 Test Item Value Reference Range Interpretation Comments HEMOGLOBIN (BEAKER) (test code = 14.1 GM/DL 12.0-15.0 410) HEMATOCRIT (BEAKER) (test code = 41.0 % 36.0-45.0 411) CALCIUM, [id number] 10:16:00 Test Item Value Reference Range Interpretation Comments CALCIUM IONIZED (BEAKER) (test 1.21 mmol/L 1.12-1.27 code = 698) PH, BLOOD (BEAKER) (test code = 7.28 1810) POCT-GLUCOSE [id number] 06:38:00 Test Item Value Reference Range Interpretation Comments POC-GLUCOSE METER 101 mg/dL 70-110 : TESTED A T [facility] 6720 (BEAKER) (test code [facility], = 1538) [address]: Obstetric Assistant/Techni aubree ID = [id number] for JORD AN, LACRYSTAL BASIC METABOLIC [id number] 11:03:00 Test Item Value Reference Range Interpretation [...] S NOT APPLICABLE FOR DIALYSIS PATIEN TS. Obstetric Assistant ID - ROSIANGPROTHROMBIN [id number] 10:58:00 Test Item Value Reference Range Interpretation Comments PROTIME (BEAKER) 12.8 seconds 11.9-14.2 (test code = 759) INR (BEAKER) (test 0.99 See_Comment [Automat ed message] code = 370) The system Seen generated this result transmitted ref erence range: [...] mechanical heart valves.CBC W/PLT COUNT & AUTO [id number] 10:45:00 Test Item Value Reference Range Interpretation [...] (BEAKER) (test code = 2801) BASIC METABOLIC [id number] 07:36:00 Test Item Value Reference Range Interpretation [...] S NOT APPLICABLE FOR DIALYSIS PATIEN TS. Obstetric Assistant ID - DBCBC (HEMOGRAM ONLY)2020-06-24 07:17:00 Test [...] (BEAKER) (test code = 413) BASIC METABOLIC [id number] 10:30:00 Test Item Value Reference Range Interpretation [...] S NOT APPLICABLE FOR DIALYSIS PATIEN TS. Obstetric Assistant ID - PIAYA LCBC W/PLT COUNT & AUTO [id number] 07:19:00 Test Item Value Reference Range Interpretation [...] PERCENT (BEAKER) (test code = 2801) CALCIUM, [id number] 12:34:00 Test Item Value Reference Range Interpretation Comments CALCIUM IONIZED (BEAKER) (test 1.10 mmol/L 1.12-1.27 L code = 698) PH, BLOOD (BEAKER) (test code = 7.36 1810) GLUCOSE-STAT [id number] 12:34:00 Test Item Value Reference Range Interpretation Comments GLUCOSE RANDOM (BEAKER) (test code 125 mg/dL 70-110 H = 652) POTASSIUM-STAT [id number] 12:33:00 Test Item Value Reference Range Interpretation Comments POTASSIUM (BEAKER) (test code = 4.1 meq/L 3.6-5.5 379) HGB/HCT (H&H) - STAT [id number] 12:33:00 Test Item Value Reference Range Interpretation Comments HEMOGLOBIN (BEAKER) (test code = 13.8 GM/DL 12.0-15.0 410) HEMATOCRIT (BEAKER) (test code = 41.0 % 36.0-45.0 411) POCT-GLUCOSE [id number] 06:57:00 Test Item Value Reference Range Interpretation Comments POC-GLUCOSE METER 90 mg/dL 70-110 : TESTED A T [facility] 6720 (BEAKER) (test code = [place], 1538) [address]: Obstetric Assistant/Techni aubree ID = [id number] for TADEO CHAUDHARY COMPREHENSIVE METABOLIC [id number] 12:28:00 Test Item Value Reference Range Interpretation [...] S NOT APPLICABLE FOR DIALYSIS PATIEN TS. Obstetric Assistant ID - BSPROTHROMBIN [id number] 12:24:00 Test Item Value Reference Range Interpretation Comments PROTIME (BEAKER) 13.6 seconds 11.9-14.2 (test code = 759) INR (BEAKER) (test 1.07 See_Comment [Automat ed message] code = 370) The system Seen generated this result transmitted ref erence range: [...] mechanical heart valves.CBC W/PLT COUNT & AUTO [id number] 12:06:00 Test Item Value Reference Range Interpretation [...] % 0-1 PERCENT (BEAKER) (test code = 1161)
[2021-08-25] MEDS ORDERED: MORPHINE 2 MG/ML SYR ONE (17:18)
[2021-08-25 17:23] LABS: Absolute Lymphocytes (CBC) 2.9 K/uL (0.7-4.9); Hematocrit 44.2 % (36.0-45.0); Lymphocytes % 17.9 % (15.3-44.8); MPV 9.6 fL (7.6-11.3); RBC Red Blood Cell Count 4.77 M/uL (3.86-4.86)
[2021-08-25 17:27] LABS: Protime INR 0.98
[2021-08-25 17:42] LABS: Albumin 3.6 g/dL (3.4-5.0); Bilirubin Direct 0.1 mg/dL (0-0.2); Bilirubin Total 0.4 mg/dL (0.2-1.0); Potassium 3.2 mmol/L (3.5-5.1); Protein, Total 6.7 g/dL (6.4-8.2); Troponin High Sensitivity 10.3 pg/mL (<58.9)
--- NOTE | 2021-08-25 18:02 | RAD REPORT ---
EXAM DESCRIPTION: US - Extremity Venous Uni Ltd - 08/25/2021 5:51 pm CLINICAL HISTORY: PAIN COMPARISON: None. TECHNIQUE: Real-time sonographic evaluation of the right lower extremity deep venous systems was per formed. FINDINGS: Normal compressibility, flow augmentation, phasic flow and spontaneous flow are identified in the right lower extremity common femoral, superficial femoral, popliteal and posterior tibial vei ns. No intraluminal filling defects seen. IMPRESSION: No DVT in the right lower extremity.
--- NOTE | 2021-08-25 18:06 | RAD REPORT ---
EXAM DESCRIPTION: US - Lower Extremity Artery Uni Ltd - 08/25/2021 5:52 pm CLINICAL HISTORY: PAIN COMPARISON: No comparisons TECHNIQUE: Doppler evaluation of the right lower extremity arterial tree performed. Waveforms and ve locity values were obtained along with visual inspection. FINDINGS: Patient has a history of right lower extremity arterial bypass, specifics not known. No co mparison imaging available. Arterial bypass is seen from the common femoral artery to adductor canal region proximal to the popli teal artery. This bypass shows echogenic material filling the lumen. No blood flow could be demonstra gustavo on Doppler assessment. [place] arterial tree shows no identifiable blood flow from common femoral artery to adductor canal region proximal to the popliteal artery. Popliteal artery shows a monophasic waveform pattern that is dampened. Dampened monophasic waveform s een in the posterior tibial artery as well. Dorsalis pedis artery could not be identified. IMPRESSION: Dampened, monophasic waveform pattern seen in the popliteal and posterior tibial arterie s. The [place] arterial tree and a bypass graft from common femoral to the adductor canal region appears fully thrombosed with no blood flow identifiable. Arterial pathway supplying the popliteal artery cou ld not be identified.
--- NOTE | 2021-08-25 18:14 | RAD REPORT ---
EXAM DESCRIPTION: RAD - Chest Single View - 08/25/2021 5:54 pm CLINICAL HISTORY: right leg numbness, shortness of breath COMPARISON: July 2021 TECHNIQUE: AP portable chest image was obtained 08/25/2021 5:54 pm . FINDINGS: Fibrotic lung changes are again noted with large bullous cavities in the upper lung yepez . No superimposed failure, infiltrate or mass. Lung parenchymal findings match comparison. Heart and vasculature are normal. No measurable pleural effusion and no pneumothorax. No acute bony abnormality seen. No acute aortic findings suspected. IMPRESSION: Diffuse COPD pattern matching comparison. No acute chest finding.
--- NOTE | 2021-08-25 18:54 | EDPHYS ---
Physician Documentation [facility] Name: Ting Samuel Age: 75 yrs Sex: Female : 1945 Arrival Date: 08/25/2021 Time: 16:06 Bed 18 Private MD: ED Physician Shannon Ray HPI: 08/25 16:25 This 75 yrs old Female presents to ER via Wheelchair with complaints of R leg pain with cp Numbness. 16:25 The patient presents with pain, that is acute. cp 16:25 The complaints affect the right lower leg. Context: the patient can fully bear weight. cp Onset: The symptoms/episode began/occurred yesterday. Associated signs and symptoms: Pertinent positives: calf tenderness, numbness of right lower leg started today, Pertinent negatives fever, warmth, chest pain, shortness of breath. Treatment prior to arrival includes: no previous treatment. Historical: - Allergies: 16:24 No Known Allergies; ss - Home Meds: 16:41 aspirin 81 mg Oral tab 1 tab daily [Active]; furosemide 40 mg Oral tab [Active]; carranza potassium chloride 40 mEq/15 mL Oral liqd [Active]; - PMHx: 16:24 CVA; ss - PSHx: 16:24 vascular bypass bilateral lower extremities; ss 16:41 bipass surgery in MING legs; carranza - Immunization history:: Client reports having NOT received the Covid vaccine. - Social history:: Smoking status: Patient reports the use of cigarette tobacco products, smokes one pack cigarettes per day. ROS: 16:30 MS/extremity: Positive for pain, paresthesias, tenderness, of the right lower leg, cp Negative for injury or acute deformity, decreased range of motion. 16:30 Constitutional: Negative for body aches, chills, poor PO intake. cp 16:30 Neck: Negative for pain with movement, pain at rest. 16:30 Cardiovascular: Negative for chest pain, edema, palpitations. 16:30 Respiratory: Negative for cough, shortness of breath, wheezing. 16:30 Abdomen/GI: Negative for abdominal pain, nausea, vomiting, and diarrhea. 16:30 Back: Negative for pain at rest, pain with movement. 16:30 Neuro: Positive for numbness, of the right leg, Negative for altered mental status, dizziness, weakness. 16:30 All other systems are negative. Exam: 16:35 Constitutional: The patient appears in no acute distress, alert, awake, cp non-diaphoretic, non-toxic, well developed, well nourished, uncomfortable. 16:35 Head/Face: Normocephalic, atraumatic. cp 16:35 Eyes: Periorbital structures: appear normal, Conjunctiva: normal, no exudate, no injection, Sclera: no appreciated abnormality, Lids and lashes: appear normal, bilaterally. 16:35 ENT: External ear(s): are unremarkable, Nose: is normal, Mouth: Lips: moist, Oral mucosa: pink and intact, moist, Posterior pharynx: Airway: no evidence of obstruction, patent. 16:35 Chest/axilla: Inspection: normal. 16:35 Cardiovascular: Rate: normal, Rhythm: regular, Pulses: dorsalis pedis pulse not palpable right lower extremity, weak palpable dorsalis pedis pulse noted left lower extremity, Edema: mild lower leg edema of right leg, JVD: is not appreciated. 16:35 Respiratory: the patient does not display signs of respiratory distress, Respirations: normal, no use of accessory muscles, no retractions, labored breathing, is not present, Breath sounds: are clear throughout, no decreased breath sounds, no stridor, no wheezing. 16:35 Abdomen/GI: Inspection: abdomen appears normal, Palpation: abdomen is soft and non-tender, in all quadrants. 16:35 Back: pain, is absent, ROM is normal. 16:35 Skin: cellulitis, is not appreciated, no rash present. 16:35 Neuro: Orientation: to person, place \\T\\ time. Mentation: is normal, Motor: moves all fours, strength is normal. 20:10 ECG was reviewed by the Attending Physician. cp Vital Signs: 16:20 BP 150 / 86; Pulse 85; Resp 18; Temp 98.0(TE); Pulse Ox 96% on R/A; Weight 64.41 kg; ss Height 5 ft. 2 in. (157.48 cm); Pain 0/10; 16:39 BP 139 / 60; Pulse 83; Resp 18; Pulse Ox 98% on R/A; carranza 19:16 BP 148 / 97; Pulse 70; Resp 16; Pulse Ox 96% on R/A; Pain 0/10; emy 22:10 BP 119 / 47; Pulse 60; Resp 16; Temp 97.5; Pulse Ox 95% on R/A; Pain 0/10; emy 16:20 Body Mass Index 25.97 (64.41 kg, 157.48 cm) ss MDM: 16:57 Patient medically screened. 18:00 Differential diagnosis: arterial occlusion, DVT, cellulitis. 18:45 Data reviewed: vital signs, nurses notes, lab test result(s), radiologic studies, cp ultrasound. 18:45 Counseling: I had a detailed discussion with the patient and/or guardian regarding: the historical points, exam findings, and any diagnostic results supporting the discharge/admit diagnosis, lab results, radiology results, the need to transfer to another facility, [facility] does not immediately have the required specialist. 21:00 Physician consultation: was contacted at 20:50, regarding regarding transfer, to [facility]. patient's condition, accepting physician will be DR Licea. 08/25 17:02 Order name: Basic Metabolic Panel; Complete Time: 17:44 08/25 17:44 Interpretation: Normal except: K 3.2; CO2 34; GLUC 113; BUN 20; GFR 49. 08/25 17:02 Order name: CBC with Diff; Complete Time: 17:44 08/25 17:44 Interpretation: Normal except: WBC 16.2; SHONA% 74.4; NEUT A 12.0. 08/25 17:02 Order name: LFT's; Complete Time: 17:44 08/25 17:02 Order name: Magnesium; Complete Time: 17:44 08/25 17:02 Order name: NT PRO-BNP; Complete Time: 17:44 20 17:02 Order name: PT-INR; Complete Time: 17:44 08/25 16:26 Order name: US Extremity Venous Unilateral Ltd; Complete Time: 18:23 08/25 18:23 Interpretation: Report reviewed. 08/25 16:26 Order name: US LE Artery Uni Ltd; Complete Time: 18:23 08/25 17:02 Order name: Troponin HS; Complete Time: 17:44 08/25 17:02 Order name: XRAY Chest (1 view); Complete Time: 18:23 08/25 20:46 Interpretation: Report review. 08/25 17:02 Order name: Ptt, Activated; Complete Time: 17:44 cp 08/25 19:36 Order name: COVID-19 SARS RT PCR (Document "Date of Onset" if Symptomatic) 08/25 17:02 Order name: EKG; Complete Time: 17:02 cp 08/25 17:02 Order name: Cardiac monitoring 08/25 17:02 Order name: EKG - Nurse/Tech; Complete Time: 20:12 cp 08/25 17:02 Order name: IV Saline Lock; Complete Time: 17:11 cp 08/25 17:02 Order name: Labs collected and sent; Complete Time: 17:11 cp 08/25 17:02 Order name: O2 Per Protocol; Complete Time: 17:11 08/25 17:02 Order name: O2 Sat Monitoring; Complete Time: 17:11 cp 08/25 17:47 Order name: Urine Dipstick-Ancillary (obtain specimen) cp EC:10 Rate is 62 beats/min. Rhythm is regular. [place] interval is normal. QRS interval is normal. cp QT interval is normal. T waves are Inverted in lead aVR. Interpreted by me. Reviewed by me. Administered Medications: 17:22 Drug: morphine 2 mg Route: IVP; Site: left antecubital; carranza 18:59 CANCELLED (Physician Discretion): Heparin (DVT/PE- Bolus per protocol) - HEParin 80 cp units/kg IVP once; Max 8,000 units 19:07 CANCELLED (Physician Discretion): Heparin (DVT/PE Drip) 18 units/kg/hr - (HEParin 36564 cp units, D5W 500 ml) IV at calculated rate Per protocol; Max initial rate 1800 units/hr 19:08 CANCELLED (Physician Discretion): Heparin (DVT/PE- Bolus per protocol) - HEParin 80 cp units/kg IVP once; Max 8,000 units 20:06 Drug: Heparin (IA-Bolus No thrombolytic) - HEParin 60 units/kg {Co-Signature: kathleen (Suzan Lewis RN).} Route: IVP; Site: left antecubital; 22:18 Follow up: Response: No adverse reaction emy 20:09 Drug: Heparin (IA Drip) 12 units/kg/hr - (HEParin 12687 units, D5W 500 ml) emy {Co-Signature: iw (Suzan Lewis RN).} Route: IV; Rate: calculated rate; Site: left antecubital; 20:16 Drug: PlaVIX (clopidogrel) 300 mg Route: PO; emy 20:16 Drug: Potassium Effervescent Tablet 50 mEq Route: PO; emy 22:18 Follow up: Response: No adverse reaction emy 20:16 Drug: Dilaudid (HYDROmorphone) 1 mg Route: IVP; Site: left antecubital; emy 22:18 Follow up: Response: No adverse reaction emy 23:15 Drug: Ativan (LORazepam) 0.5 mg Route: IVP; Site: left antecubital; emy Disposition Summary: 08/25/21 18:53 Transfer Ordered Transfer Location: Other Acute Care Facility cp Reason: Higher level of care cp Condition: Stable cp Problem: new cp Symptoms: have improved cp Accepting Physician: DR Licea(08/26/21 00:44) tw5 Diagnosis - 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 cp 19:07 19:00 Heparin (DVT/PE Drip) 18 units/kg/hr - (HEParin 91576 units, D5W 500 ml) IV at cp calculated rate Per protocol; Max initial rate 1800 units/hr ordered. cp 19:08 17:47 Heparin (DVT/PE- Bolus per protocol) - HEParin 80 units/kg IVP once; Max 8,000 cp units ordered. cp 22:40 18:53 Doctor cp cp 08/26 00:44 08/25 22:40 DR Licea cp tw5 08/26 23:29 08/25 16:25 Associated signs and symptoms: Pertinent positives: calf tenderness, cp numbness of right lower leg started today, Pertinent negatives fever, warmth, cp
--- NOTE | 2021-08-25 18:54 | ER ---
Nurse's Notes [facility] Name: Ting Samuel Age: 75 yrs Sex: Female : 1945 Arrival Date: 08/25/2021 Time: 16:06 Bed 18 Private MD: Diagnosis: Embolism and thrombosis of unspecified artery-right common femoral Presentation: 08/25 16:20 Chief complaint: Patient states: Burning and numbness to R lower extremity from R knee ss to R ankle that began at 2100 last night. HX of vascular surgery in both legs. Coronavirus screen: Client denies travel out of the [place] in the last 14 days. Ebola Screen: Patient denies exposure to infectious person. Patient denies travel to an Ebola-affected area in the 21 days before illness onset. Initial Sepsis Screen: Does the patient meet any 2 criteria? No. Patient's initial sepsis screen is negative. Does the patient have a suspected source of infection? No. Patient's initial sepsis screen is negative. Risk Assessment: Do you want to hurt yourself or someone else? Patient reports no desire to harm self or others. Onset of symptoms was August 24, 2021. 16:20 Method Of Arrival: Wheelchair ss 16:20 Acuity: DOUG 2 ss Historical: - Allergies: 16:24 No Known Allergies; ss - Home Meds: 16:41 aspirin 81 mg Oral tab 1 tab daily [Active]; furosemide 40 mg Oral tab [Active]; carranza potassium chloride 40 mEq/15 mL Oral liqd [Active]; - PMHx: 16:24 CVA; ss - PSHx: 16:24 vascular bypass bilateral lower extremities; ss 16:41 bipass surgery in MING legs; carranza - Immunization history:: Client reports having NOT received the Covid vaccine. - Social history:: Smoking status: Patient reports the use of cigarette tobacco products, smokes one pack cigarettes per day. Screenin:39 Abuse screen: Denies threats or abuse. Denies injuries from another. Nutritional carranza screening: No deficits noted. Tuberculosis screening: No symptoms or risk factors identified. Fall Risk None identified. Assessment: 16:39 General: Appears in no apparent distress. Behavior is calm, cooperative. Pain: carranza Complains of pain in right leg. Derm: Reports pain that is 8 out of 10 on a pain scale. Musculoskeletal: Reports numbness in right leg pain in right leg. 19:17 Reassessment: No changes from previously documented assessment. I recv'd report on the emy pt in room #18. She is to be transferred to another facility. Awaiting MOT. 22:11 Reassessment: The pt is going to [facility] and I have called [phone], to give emy report, but it just keeps ringing. EMS will be here in 45 minutes, approximately. 22:13 Reassessment: No one ever came on the line and it was disconnected, this after 5 emy minutes of ringing. I am calling again. 22:23 Reassessment: Report given to MAYURI Parisi, in [facility]. emy 08/26 00:15 Reassessment: I asked the psychiatric secretary to check on EMS and she said that they were coming. emy Awaiting their arrival. 00:32 Reassessment: EMS is here and report was given to them. The pt is being readied to be emy transferred. Vital Signs: 08/25 16:20 BP 150 / 86; Pulse 85; Resp 18; Temp 98.0(TE); Pulse Ox 96% on R/A; Weight 64.41 kg; ss Height 5 ft. 2 in. (157.48 cm); Pain 0/10; 16:39 BP 139 / 60; Pulse 83; Resp 18; Pulse Ox 98% on R/A; carranza 19:16 BP 148 / 97; Pulse 70; Resp 16; Pulse Ox 96% on R/A; Pain 0/10; emy 22:10 BP 119 / 47; Pulse 60; Resp 16; Temp 97.5; Pulse Ox 95% on R/A; Pain 0/10; emy 16:20 Body Mass Index 25.97 (64.41 kg, 157.48 cm) ED Course: 16:06 Patient arrived in ED. ds1 16:24 Triage completed. ss 16:24 Rojas Lenz PA is PHCP. cp 16:24 Arm band placed on right wrist. ss 16:27 Guicho Buenrostro NP is PHCP. pm1 16:27 Shannon Ray MD is Attending Physician. pm1 16:38 Eleanor Fuentes RN is Primary Nurse. carranza 16:39 Patient has correct armband on for positive identification. Bed in low position. carranza 16:39 No provider procedures requiring assistance completed. Inserted saline lock: 20 gauge carranza in left antecubital area, using aseptic technique. 16:42 Rojas Lenz PA is PHCP. pm1 17:53 US Extremity Venous Unilateral Ltd In Process Unspecified. EDMS 17:53 US LE Artery Uni Ltd In Process Unspecified. EDMS 17:56 XRAY Chest (1 view) In Process Unspecified. EDMS 18:10 Initiated call for transfer to [facility] by Shilpa, to which the denied due to capacity. wm 19:[address] [facility], spoke to Meryl Mercer...she stated that there were no rooms wm available in [facility], but that she will try the [facility], placed on to verify with Dr. Lenz and Family, and they agreed to go there if accepted. 20:05 COVID-19 SARS RT PCR (Document "Date of Onset" if Symptomatic) Sent. emy 20:16 COVID-19 SARS RT PCR (Document "Date of Onset" if Symptomatic) Sent. emy 21:30 Pt. accepted for transfer at [facility] by Dr. Licea for Rm#[id number]. wm Administered Medications: 17:22 Drug: morphine 2 mg Route: IVP; Site: left antecubital; carranza 18:59 CANCELLED (Physician Discretion): Heparin (DVT/PE- Bolus per protocol) - HEParin 80 cp units/kg IVP once; Max 8,000 units 19:07 CANCELLED (Physician Discretion): Heparin (DVT/PE Drip) 18 units/kg/hr - (HEParin 65944 cp units, D5W 500 ml) IV at calculated rate Per protocol; Max initial rate 1800 units/hr 19:08 CANCELLED (Physician Discretion): Heparin (DVT/PE- Bolus per protocol) - HEParin 80 cp units/kg IVP once; Max 8,000 units 20:06 Drug: Heparin (CO-Bolus No thrombolytic) - HEParin 60 units/kg {Co-Signature: kathleen (Suzan Lewis RN).} Route: IVP; Site: left antecubital; 22:18 Follow up: Response: No adverse reaction emy 20:09 Drug: Heparin (CO Drip) 12 units/kg/hr - (HEParin 06160 units, D5W 500 ml) emy {Co-Signature: kathleen (Suzan Lewis RN).} Route: IV; Rate: calculated rate; Site: left antecubital; 20:16 Drug: PlaVIX (clopidogrel) 300 mg Route: PO; emy 20:16 Drug: Potassium Effervescent Tablet 50 mEq Route: PO; emy 22:18 Follow up: Response: No adverse reaction emy 20:16 Drug: Dilaudid (HYDROmorphone) 1 mg Route: IVP; Site: left antecubital; emy 22:18 Follow up: Response: No adverse reaction emy 23:15 Drug: Ativan (LORazepam) 0.5 mg Route: IVP; Site: left antecubital; emy Medication: 16:39 VIS not applicable for this client. carranza Outcome: 18:53 ER care complete, transfer ordered by MD. shafer 08/26 00:44 Patient left the ED. tw5 Signatures: Dispatcher [employer] EDWA Mirian Cruz ds1 Jennie Mir RN RN ss Page, Corey, PA PA cp Marinas, Patrick, DECKHAND DECKHAND pm1 Sofia Julian Tiffany tw5 Jaimie Alvarado RN RN bo Au-Stager, Heather, RN RN carranza Suzan Lewis RN iw Corrections: (The following items were deleted from the chart) 08/25 16:25 16:24 Allergies: Codeine; ss ss 22:48 18:10 Initiated call for transfer to [facility] by Shilpa headley
[2021-08-25] MEDS ORDERED: HYDROMORPHONE HCL 1 MG/ML INJ ONE (19:42)
[2021-08-25] MEDS ORDERED: HEPARIN 5000 UNIT/ML 1 ML VIAL ONE (19:42)
[2021-08-25] MEDS ORDERED: CLOPIDOGREL 75 MG TABLET ONE (19:43)
[2021-08-25] MEDS ORDERED: HEPARIN/D5W 25,000 UNIT/500 ML BAG IV ONE (19:43)
[2021-08-25] MEDS ORDERED: POTASSIUM 25 MEQ EFFERV TAB ONE (19:43)
[2021-08-25] MEDS ORDERED: LORazepam 2 MG/ML VIAL ONE (23:16)
[2021-08-26 00:59] VITALS: BP 119/47; TEMP 97.5; O2SAT 95
--- NOTE | 2021-08-26 11:07 | EKG ---
Test Date: 2021-08-25 Test Time: 20:00:57 Asp Developer: TRI MEASUREMENT RESULTS: Intervals: Rate: 62 UT: 126 QRSD: 84 QT: 400 QTc: 406 [place]: P: 79 UT: 126 QRS: 58 T: 28 INTERPRETIVE STATEMENTS: Normal sinus rhythm with sinus arrhythmia Nonspecific ST abnormality Abnormal ECG Compared to ECG 06/10/2020 09:50:44 Short UT interval no longer present ST (T wave) deviation still present Electronically Signed On 08-26-21 11:05:59 CDT by González Newton
--- NOTE | 2021-08-28 11:30 | EKG ---
Test Date: 2021-08-25 Test Time: 20:04:03 Manager Market Development: TRI MEASUREMENT RESULTS: Intervals: Rate: 62 FL: 132 QRSD: 84 QT: 412 QTc: 418 [place]: P: 76 FL: 132 QRS: 57 T: 44 INTERPRETIVE STATEMENTS: Normal sinus rhythm Normal ECG Compared to ECG 08/25/2021 20:00:57 Sinus arrhythmia no longer present ST (T wave) deviation no longer present Electronically Signed On 08-28-21 11:24:02 CDT by González Newton
== END 2021-08-26 00:44 ==
LOC: ER 16:04
DX: I74.3 Embolism and thrombosis of arteries of the lower extremities (principal); F17.210 Nicotine dependence, cigarettes, uncomplicated; Z79.82 Long term (current) use of aspirin; Z86.73 Personal history of transient ischemic attack (TIA), and cerebral infarction without residual deficits
CPT/HCPCS: 93005 ×2; 85025; 80048; 36415; 83735; 85610; 80076; 85730; 84484; 83880; 71045; 93926; 93971; 96375; 96374; 99285; U0003; J1644 ×2; J2270; J1170

== ENCOUNTER 2024-05-09 14:04 | Emergency (ER) | payer OTHER ==
--- OUTSIDE RECORDS SUMMARY | 2024-05-09 14:07 | XMS REPORT | Clinical Summary ---
Author Name Unknown Organization [facility] Address [address] [place] [address] Care Team Providers Care [employer] [place] Name Role Phone Tanner Mullen MD Unavailable [phone] Chandni VargasC Unavailable Leigha Verdin SUPERVISOR CLAIMS Unavailable Daksha Ley Unavailable [phone] Shantanu Barry MD Unavailable [phone] Kei Lemus MD Unavailable Dilshad Zeng MD Unavailable [phone] Verónica Birmingham MD Unavailable [phone] Quentin Gale MD Unavailable [phone] Dipak Mejias MD Unavailable Sobeida Porter Unavailable Angelic Crump MD Unavailable [email or web address] Kei Lemus MD Primary Care Provider Allergies Active Allergy Reactions Criticality Noted Date Comments Naproxen Sodium 04/29/2015 Advised not to take this medication Codeine Sulfate 04/29/2015 Nausea and vomiting Hydrocodone-Acetaminoph en 04/29/2015 Nausea and vomiting Tetracyclines Other (See Comments) 07/07/2015 "Black tongue" Medications * This document contains information received from the source organization and may not represent a complete record from that organization. BIOTIN ORAL Take by mouth daily. Active CALCIUM CARBONATE/VITAMI N D3 (CALCIUM+D ORAL) Take 1,200 mg/mL by mouth daily. Active GUAIFENESIN/PSEU DOEPHEDRNE HCL (MUCINEX D ORAL) Take 1 tablet by mouth daily. Reported on 07/05/2016 Active VITAMIN E, DL,TOCOPHERYL ACET, (VITAMIN E, ACETATE,) 400 units cap capsule Take 400 mg by mouth. Reported on 07/05/2016 Active cholecalciferol, vitamin D3, (VITAMIN D3) 5,000 units tab tablet Take 400 Units by mouth. Active anastrozole (ARIMIDEX) 1 mg tabletIndication s:Personal history of malignant neoplasm of breast Take 1 tablet (1 mg total) by mouth daily. 90 tablet 3 6 Active amLODIPine (NORVASC) 2.5 mg tablet 5 Active lisinopril (PRINIVIL,ZESTRI L) 5 mg tablet Take 5 mg by mouth every morning. Active acetaminophen-co deine (TYLENOL #3) 300 mg-30 mg tablet 7 Active ondansetron (ZOFRAN) 4 mg tablet 7 Active turmeric root extract 500 mg cap Take 500 mg by mouth daily. Active coconut oil 1,000 mg cap Take 1 mg by mouth daily. 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 Gender Identity Not on file Sexual Orientation Not on file Obstetrics History Para Term AB IAB SAB Ectopic Multiple Livin g Live Births 3 3 3 2 Date Outcome GA Total Labor Labor//3rd Weight Sex Type Anes PTL Jane A1 A5 Name Clin Term Term Term Plan of Treatment Health Maintenance Due Date Last Done Comments Pneumococcal Vaccine: 65+ Years (1 of - PCV) 997 COVID-19 Vaccine (2023- season) 2023 Influenza Vaccine (#1) 2023 Insurance [employer] MEDICARE PPO [employer] MEDICARE PPO [employer] MEDICARE PPO Advance Directives Documents on File Type Date Recorded 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 PCP - General Breast Medical Oncology 07/05/16 Chandni Vargas PA-C [address] [place] [phone] [email or web address] Physician Adjunct Business Instructor 06/15/15 Leigha Verdin APRN [address] [place] [id number] [email or web address] Nurse Practitioner 06/15/15 Daksha Ley [address] [place] [phone] [email or web address] Nurse Practitioner 06/15/15 Shantanu Barry MD [address] [place] [phone] [email or web address] Physician 06/15/15 Kei Lemus MD [address] [place] [phone] [email or web address] Physician 06/15/15 Dilshad Zeng MD [address] [place] [phone] [email or web address] Physician 06/15/15 Verónica Birmingham MD [address] [place] [phone] [email or web address] Physician 06/15/15 [place] [address] [place] [address] Physician 06/15/15 Dipak Mejias MD [address] [place] [phone] [email or web address] Physician 06/15/15 Sobeida Porter PA [address] [place] [address]. [place] [address] [email or web address] Physician Adjunct Business Instructor 06/15/15 Angelic Crump MD [email or web address] Physician 06/15/15
[2024-05-09] MEDS ORDERED: MORPHINE 4 MG/ML SYR ONE ×2 (14:54→18:47)
[2024-05-09 15:45] LABS: Absolute Basophils 0.1 K/uL (0-0.5); Absolute Eosinophils 0.2 K/uL (0-0.5); Absolute Lymphocytes (CBC) 1.6 K/uL (0.7-4.9); Absolute Monocytes 0.9 K/uL (0.1-1.3); Absolute Neutrophil 10.4 K/uL (1.8-8.0); Basophils % 0.5 % (0-1.3); Eosinophils % 1.4 % (0-4.4); Hematocrit 44.5 % (36.0-45.0); Hemoglobin 15.1 g/dL (12.0-15.0); Lymphocytes % 12.2 % (15.3-44.8); MCH 30.2 pg (27.0-35.0); MCHC 33.9 g/dL (32.0-36.0); MCV 89.2 fL (80-100); MPV 9.5 fL (7.6-11.3); Monocytes % 6.8 % (3.3-12.3); Neutrophils % 79.1 % (41.7-73.7); Nucleated Red Blood Cells % 0.1 % (0-0); Platelets 322 thou/uL (152-406); RBC Red Blood Cell Count 4.99 M/uL (3.86-4.86); Red Cell Distribution Width 14.6 % (12.1-15.2)
--- NOTE | 2024-05-09 16:08 | RAD REPORT ---
EXAMINATION: TWO VIEW CHEST XR CLINICAL INDICATION: Female, 78 years old. [facility] MA[facility] Chest pain;Cough Bed Name: [facility] TECHNIQUE: 2 view radiographs of the chest were performed. COMPARISON: 08/25/2021. FINDINGS: The lungs are hyperexpanded suggesting COPD. No pneumothorax or sizable effusion. The heart is normal in size. Mediastinal contours are unremarkable. IMPRESSION: No acute or significant abnormalities.
[2024-05-09 16:39] LABS: PT Prothrombin Time 11.1 SECONDS (9.4-12.5); PTT, Activated Partial Thromb 31.9 SECONDS (24.3-36.9); Protime INR 1.06
[2024-05-09 16:50] LABS: Albumin 3.4 g/dL (3.4-5.0); Albumin/Globulin Ratio 0.9 (1.1-1.8); Anion Gap 10.5 mEq/L (5.0-15.0); Bilirubin Direct 0.2 mg/dL (0-0.2); Bilirubin Indirect, Calculated 0.4 mg/dL (0.2-0.8); Bilirubin Total 0.6 mg/dL (0.2-1.0); Globulin 3.6 g/dL (2.3-3.5); Magnesium 2.1 mg/dL (1.6-2.4); Potassium 3.5 mEq/L (3.5-5.1); Troponin High Sensitivity 5.8 pg/mL (<58.9)
[2024-05-09] MEDS ORDERED: AZITHROMYCIN 250 MG TAB ONE (18:47)
--- NOTE | 2024-05-09 18:58 | ER ---
Nurse's Notes [facility] Name: Ting Samuel Age: 78 yrs Sex: Female : 1945 Arrival Date: 05/09/2024 Time: 14:04 Bed 16 Private MD: Diagnosis: Chest pain, unspecified Presentation: 05/09 14:26 Chief complaint: Patient states: Bilateral rib pain onset yesterday. Pt reports that cm10 the pain is worse with movement and coughing. Coronavirus screen: Client denies travel out of the [place] in the last 14 days. Ebola Screen: Patient denies travel to an Ebola-affected area in the 21 days before illness onset. Initial Sepsis Screen: Does the patient meet any 2 criteria? No. Patient's initial sepsis screen is negative. Does the patient have a suspected source of infection? No. Patient's initial sepsis screen is negative. Risk Assessment: Do you want to hurt yourself or someone else? Patient reports no desire to harm self or others. Onset of symptoms was May 09, 2024. 14:26 Method Of Arrival: Wheelchair cm10 14:26 Acuity: DOUG 3 cm10 Triage Assessment: 14:27 General: Appears uncomfortable, Behavior is calm, cooperative. Neuro: No deficits cm10 noted. Level of Consciousness is awake, alert, obeys commands, Oriented to person, place, time, situation, Appropriate for age. Respiratory: No deficits noted. Airway is patent Respiratory effort is even, unlabored, Respiratory pattern is regular, symmetrical. Historical: - Allergies: 14:25 No Known Allergies; cm10 - Home Meds: 14:25 furosemide 40 mg Oral tab [Active]; cm10 - PMHx: 14:25 CVA; cm10 - PSHx: 14:25 bipass surgery in MING legs; vascular bypass bilateral lower extremities; cm10 - Immunization history:: Adult Immunizations up to date. - Infectious Disease History:: Denies. - Social history:: Smoking status: Patient reports the use of cigarette tobacco products, smokes 1.5 packs per day. - Family history:: not pertinent. - Hospitalizations: : No recent hospitalization is reported. Screenin:06 [facility] ED Fall Risk Assessment (Adult) History of falling in the last 3 months, kc6 including since admission No falls in past 3 months (0 pts) Confusion or Disorientation No (0 pts) Intoxicated or Sedated No (0 pts) Impaired Gait No (0 pts) Mobility Assist Device Used No (0 pt) Altered Elimination No (0 pt) Score/Fall Risk Level 0 - 2 = Low Risk Oriented to surroundings, Maintained a safe environment, Educated pt \T\ family on fall prevention, incl call for assistance when getting out of bed. Abuse screen: Denies threats or abuse. Denies injuries from another. Nutritional screening: No deficits noted. Tuberculosis screening: No symptoms or risk factors identified. Assessment: 16:07 General: Appears in no apparent distress. uncomfortable, well groomed, well developed, kc6 Behavior is calm, cooperative, appropriate for age. Pain: Complains of pain in back and chest. Neuro: Level of Consciousness is awake, alert, obeys commands, Oriented to person, place, time, situation, Appropriate for age. Cardiovascular: Denies chest pain, Capillary refill < 3 seconds. Respiratory: Airway is patent Trachea midline Respiratory effort is even, labored, with nasal flaring, pursed lip, Respiratory pattern is regular, symmetrical, Breath sounds with wheezes bilaterally. GI: No signs and/or symptoms were reported involving the gastrointestinal system. : No signs and/or symptoms were reported regarding the genitourinary system. EENT: No signs and/or symptoms were reported regarding the EENT system. Derm: No signs and/or symptoms reported regarding the dermatologic system. Skin is fragile, is thin, with poor turgor Skin is pink, warm \T\ dry. Musculoskeletal: No signs and/or symptoms reported regarding the musculoskeletal system. Circulation, motion, and sensation intact. Range of motion: intact in all extremities. 17:07 Reassessment: Patient appears in no apparent distress at this time. No changes from kc6 previously documented assessment. Patient and/or family updated on plan of care and expected duration. Pain level reassessed. Patient is alert, oriented x 3, equal unlabored respirations, skin warm/dry/pink. 17:10 Reassessment: per Hilary from CT, pt unable to lie flat and tolerate test at this kc6 time. pt reported SOB and sharp stabbing side pain. MD made aware. 18:19 Reassessment: Patient appears in no apparent distress at this time. No changes from kc6 previously documented assessment. Patient and/or family updated on plan of care and expected duration. Pain level reassessed. Patient is alert, oriented x 3, equal unlabored respirations, skin warm/dry/pink. Vital Signs: 14:26 BP 136 / 64; Pulse 88; Resp 19; Temp 97.3(IR); Pulse Ox 97% on R/A; Weight 66.68 kg; cm10 Height 5 ft. 2 in. ; Pain 10/10; 18:20 BP 163 / 76; Pulse 90; Resp 18 S; Pulse Ox 96% on R/A; kc6 14:26 Body Mass Index 26.89 (66.68 kg, 157.48 cm) cm10 14:26 Pain Scale: Adult cm10 ED Course: 14:07 Patient arrived in ED. ra3 14:24 Flavio Garcia MD is Attending Physician. rn 14:27 Triage completed. cm10 14:28 Arm band placed on right wrist. Patient placed in waiting room. cm10 14:56 Jeanette Goncalves RN is Primary Nurse. kc6 15:02 XRAY Chest Pa And Lat (2 Views) In Process Unspecified. EDMS 15:14 EKG done, by ED staff, reviewed by Flavio Garcia MD. Inserted saline lock: 22 gauge in em1 left hand, using aseptic technique. Flushed with 10 mL NS. 15:39 Inserted saline lock: 24 gauge in left wrist, using aseptic technique. Blood collected. kc6 Flushed with 10 mL NS. 16:06 Patient has correct armband on for positive identification. Bed in low position. Call kc6 light in reach. Side rails up X 1. Adult w/ patient. bus driver/monitor on. Pulse ox on. NIBP on. Door closed. Noise minimized. Lights dimmed. Warm blanket given. Pillow given. 16:06 Patient maintains SpO2 saturation greater than 95% on room air. kc6 16:19 BMP Sent. kc6 16:19 Hepatic Function Sent. kc6 16:19 Magnesium Sent. kc6 16:19 NT PRO-BNP Sent. kc6 16:19 PT-INR Sent. kc6 16:19 Ptt, Activated Sent. kc6 16:19 Troponin HS Sent. kc6 19:24 Provided Education on: chest pain. cp4 19:24 No provider procedures requiring assistance completed. intact, bleeding controlled, No cp4 redness/swelling at site. Pressure dressing applied. Administered Medications: 15:39 Drug: morphine IVP or IV 4 mg IVP once over 4 mins Route: IVP; Infused Over: 4 mins; kc6 Site: left hand; 16:06 Follow up: Response: No adverse reaction kc6 18:52 Drug: morphine IVP or IV 4 mg IVP once over 4 mins Route: IVP; Infused Over: 4 mins; kc6 Site: left hand; 19:10 Follow up: Response: No adverse reaction; Pain is decreased cp4 18:52 Drug: AZITHromycin PO 500 mg PO once Route: PO; kc6 19:10 Follow up: Response: No adverse reaction cp4 Medication: 19:24 VIS not applicable for this client. cp4 Outcome: 18:57 Discharge ordered by MD. rn 19:24 Discharged to home via wheelchair, cp4 19:24 Condition: stable 19:24 Discharge instructions given to patient, family, Instructed on discharge instructions, follow up and referral plans. medication usage, Demonstrated understanding of instructions, follow-up care, medications, Prescriptions given X 3, 19:26 Patient left the ED. cp4 Signatures: Dispatcher [employer] EDMS Flavio Garcia MD MD rn Martinez, Buck em1 Jeanette Goncalves RN RN kc6 Denisse Verdin RN RN cm10 Laura Gómez cp4 Cinthia Smith ra3 Corrections: (The following items were deleted from the chart) 18:45 15:02 Reassessment: per Hilary from CT, pt unable to lie flat and tolerate test at kc6 this time. pt reported SOB and sharp stabbing side pain. made aware kc6
--- NOTE | 2024-05-09 18:58 | EDPHYS ---
Physician Documentation [facility] Name: Ting Samuel Age: 78 yrs Sex: Female : 1945 Arrival Date: 05/09/2024 Time: 14:04 Bed 16 Private MD: ED Physician Flavio Garcia HPI: 05/09 15:49 This 78 yrs old Female presents to ER via Wheelchair with complaints of Ribcage pain. rn 15:49 The patient or guardian reports chest pain that is located primarily in the anterior rn chest wall. Onset: yesterday. Associated signs and symptoms: Pertinent positives: cough, Pertinent negatives: shortness of breath, syncope, vomiting. The chest pain is described as sharp, stabbing. 15:49 Severity of pain: At its worst the pain was moderate in the emergency department the rn pain is unchanged. The patient has not experienced similar symptoms in the past. Patient reports bilateral lower anterior rib pain that began yesterday, associated with cough, no shortness of breath. No history of DVT or PE. No trauma. No hemoptysis. No fever or chills. Does have COPD. Denies abdominal pain. Patient reports pain worse with movement, palpation and deep inspiration.. Historical: - Allergies: 14:25 No Known Allergies; cm10 - Home Meds: 14:25 furosemide 40 mg Oral tab [Active]; cm10 - PMHx: 14:25 CVA; cm10 - PSHx: 14:25 bipass surgery in [place] legs; vascular bypass bilateral lower extremities; cm10 - Immunization history:: Adult Immunizations up to date. - Infectious Disease History:: Denies. - Social history:: Smoking status: Patient reports the use of cigarette tobacco products, smokes 1.5 packs per day. - Family history:: not pertinent. - Hospitalizations: : No recent hospitalization is reported. ROS: 15:49 Constitutional: Negative for fever, chills, and weight loss, Cardiovascular: Positive rn for chest pain Respiratory: Positive for cough, negative for shortness of breath Abdomen/GI: Negative for abdominal pain, nausea, vomiting, diarrhea, and constipation, MS/Extremity: Negative for injury and deformity, Skin: Negative for injury, rash, and discoloration, Neuro: Negative for headache, weakness, numbness, tingling, and seizure, Exam: 15:49 Constitutional: This is a well developed, well nourished patient who is awake, alert, rn and in no acute distress. Chest/axilla: Bilateral anterior inferior rib tenderness. No swelling or crepitus. Cardiovascular: Regular rate and rhythm. No pulse deficits. Respiratory: Diminished breath sounds bilateral bases Abdomen/GI: No abdominal tenderness or guarding Vital Signs: 14:26 BP 136 / 64; Pulse 88; Resp 19; Temp 97.3(IR); Pulse Ox 97% on R/A; Weight 66.68 kg; cm10 Height 5 ft. 2 in. ; Pain 10/10; 18:20 BP 163 / 76; Pulse 90; Resp 18 S; Pulse Ox 96% on R/A; kc6 14:26 Body Mass Index 26.89 (66.68 kg, 157.48 cm) cm10 14:26 Pain Scale: Adult cm10 MDM: 14:24 Medical Screening Exam initiated rn 18:55 Differential diagnosis: acute pericarditis, anxiety, chest wall pain, costochondritis, rn pleurisy, pneumonia, pneumothorax, pulmonary embolus. Data reviewed: vital signs, nurses notes, lab test result(s), EKG, radiologic studies, CT scan, plain films. 18:56 Counseling: I had a detailed discussion with the patient and/or guardian regarding the rn historical points, exam findings, and any diagnostic results supporting the discharge/admit diagnosis, lab results, radiology results, the need for outpatient follow up, to return to the emergency department if symptoms worsen or persist or if there are any questions or concerns that arise at home. ED course: Patient unable to lay flat for CT scan, also had trouble obtaining IV access for IV contrast and patient did not allow nursing to try again for IV contrast. Patient states she wants to go home, understands that workup was not complete and understands that we have not completely ruled out a PE. Patient states she wants pain medication and she wants to go home. Understands risks of going home without full workup but she states she was not going to stay in the hospital regardless of what we find.. 05/09 14:33 Order name: BMP; Complete Time: 17:02 rn 05/09 14:33 Order name: CBC with Diff; Complete Time: 16:17 rn 05/09 14:33 Order name: Hepatic Function; Complete Time: 17:02 rn 05/09 14:33 Order name: Magnesium; Complete Time: 17:02 rn 05/09 14:33 Order name: NT PRO-BNP; Complete Time: 17:02 rn 05/09 14:33 Order name: PT-INR; Complete Time: 17:02 rn 05/09 14:33 Order name: Ptt, Activated; Complete Time: 17:02 rn 05/09 14:33 Order name: Troponin HS; Complete Time: 17:02 rn 05/09 14:33 Order name: XRAY Chest Pa And Lat (2 Views); Complete Time: 16:17 rn 05/09 14:33 Order name: Cardiac monitoring; Complete Time: 15:06 rn 05/09 14:33 Order name: EKG - Nurse/Tech; Complete Time: 15:06 rn 05/09 14:33 Order name: IV Saline Lock; Complete Time: 15:14 rn 05/09 14:33 Order name: Labs collected and sent; Complete Time: 15:39 rn 05/09 14:33 Order name: O2 Per Protocol; Complete Time: 14:56 rn 05/09 14:33 Order name: O2 Sat Monitoring; Complete Time: 14:56 rn 05/09 15:51 Order name: Labs - recollect needed: recollect labs/ hemolyzed per Ty; Complete Time: eb 16:19 Administered Medications: 15:39 Drug: morphine IVP or IV 4 mg IVP once over 4 mins Route: IVP; Infused Over: 4 mins; 6 Site: left hand; 16:06 Follow up: Response: No adverse reaction kc6 18:52 Drug: morphine IVP or IV 4 mg IVP once over 4 mins Route: IVP; Infused Over: 4 mins; 6 Site: left hand; 19:10 Follow up: Response: No adverse reaction; Pain is decreased cp4 18:52 Drug: AZITHromycin PO 500 mg PO once Route: PO; 6 19:10 Follow up: Response: No adverse reaction cp4 Disposition Summary: 05/09/24 18:57 Discharge Ordered Notes: Location: Home rn Problem: new rn Symptoms: have improved rn Condition: Stable rn Diagnosis - Chest pain, unspecified rn Followup: rn - With: Private Physician - When: As needed - Reason: Recheck today's complaints, Re-evaluation by your physician Discharge Instructions: - Discharge Summary Sheet rn - Nonspecific Chest Pain, Adult rn Forms: - Medication Reconciliation Form rn - Antibiotic regulatory affairs intern - Prescription Opioid Use rn - Patient Portal Instructions rn - Leadership Thank You Letter rn Prescriptions: - Prednisone 20 mg Oral Tablet - take 3 tablets ORAL route once daily for 5 days; 15 tablet; Refills: 0, Product rn Selection Permitted - Tramadol 50 mg Oral Tablet - take 1 tablet ORAL route every 8 hours as needed; 12 tablet; Refills: 0, rn Product Selection Permitted - Zithromax Z-Nemesio 250 mg Oral Tablet - take 1 tablet ORAL route as directed for 5 days Day 1 - take two (2) tablets rn one time. Day 2, 3, 4 , 5 take one (1) tablet once daily.; 6 tablet; Refills: 0, Product Selection Permitted Signatures: Dispatcher [employer] EDMS Flavio Garcia MD MD rn Botello, Jeanette Kruse RN RN kc6 Denisse Verdin RN RN cm10 Laura Gómez cp4 Corrections: (The following items were deleted from the chart) 14:34 14:34 BASIC METABOLIC PANEL+C.LAB.BRZ ordered. EDNM EDMS 14:34 14:34 CBC+H.LAB.BRZ ordered. EDNM EDMS 14:34 14:34 HEPATIC FUNCTION+C.LAB.BRZ ordered. EDNM EDMS 14:34 14:34 MAGNESIUM+C.LAB.BRZ ordered. EDNM EDMS 14:34 14:34 PROBNP+C.LAB.BRZ ordered. EDNM EDMS 14:34 14:34 PROTIME (+INR)+COAG.LAB.BRZ ordered. EDNM EDMS 14:34 14:34 PTT, ACTIVATED+COAG.LAB.BRZ ordered. EDNM EDMS 14:34 14:34 Troponin High Sensitivity+C.LAB.BRZ ordered. EDNM EDMS 14:34 14:34 Chest Pa And Lat (2 Views)+RAD.RAD.BRZ ordered. EDNM EDMS 15:50 15:49 Patient reports bilateral lower anterior rib pain that began yesterday, rn associated with cough, no shortness of breath. No history of DVT or PE. No trauma. No hemoptysis. No fever or chills. Does have COPD. Denies abdominal pain.. rn 17:06 14:37 Chest For PE Angio+CT.RAD.BRZ ordered. EDMS EDMS
[2024-05-09 19:58] VITALS: TEMP 97.3
[2024-05-09 19:59] VITALS: BP 163/76; O2SAT 96
--- NOTE | 2024-05-12 12:23 | EKG ---
Test Date: 2024-05-09 Test Time: 15:01:25 [employer] Operator: ANN MEASUREMENT RESULTS: Intervals: Rate: 88 OK: 138 QRSD: 72 QT: 344 QTc: 416 [place]: P: 77 OK: 138 QRS: 44 T: 72 INTERPRETIVE STATEMENTS: Normal sinus rhythm Nonspecific ST abnormality Abnormal ECG Compared to ECG 08/25/2021 20:04:03 ST (T wave) deviation now present Electronically Signed On 05-12-24 12:18:00 TITLE ASSISTANT by Miguelito Escobedo
== END 2024-05-09 19:26 | disposition home or self-care (01) ==
LOC: ER 14:04
DX: R07.9 Chest pain, unspecified (principal); Z86.73 Personal history of transient ischemic attack (TIA), and cerebral infarction without residual deficits
CPT/HCPCS: 36415; 71046; 80048; 80076; 83735; 83880; 84484; 85025; 85610; 85730; 93005; 96374; 99285

== ENCOUNTER 2024-05-18 13:38 | Emergency (ER) | payer OTHER ==
--- OUTSIDE RECORDS SUMMARY | 2024-05-18 13:46 | XMS REPORT | Clinical Summary ---
Author Name Unknown Organization [facility] Address [address] [place] [address] Care Team Providers Care Director Industrial Relations Name Role Phone Tanner Mullen MD Unavailable Chandni VargasC Unavailable Leigha Verdin PROGRAMMING EQUIPMENT OPERATOR Unavailable [phone] Daksha Ley Unavailable [phone] Shantanu Barry MD Unavailable [phone] Kei Lemus MD Unavailable Dilshad Zeng MD Unavailable Verónica Birmingham MD Unavailable [phone] Quentin Gale MD Unavailable Dipak Mejias MD Unavailable Sobeida Porter Unavailable Angelic Crump MD Unavailable 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 Gender Identity Not on file Sexual Orientation Not on file Obstetrics History Para Term AB IAB SAB Ectopic Multiple Livin g Live Births 3 3 3 2 Date Outcome GA Total Labor Labor//3rd Weight Sex Type Anes PTL Jane A1 A5 Name Clin Term Term Term Plan of Treatment Health Maintenance Due Date Last Done Comments Pneumococcal Vaccine: 50+ Years (1 of - PCV) 997 COVID-19 Vaccine (2023- season) 2023 Influenza Vaccine (#1) 2023 Insurance [employer] MEDICARE PPO [employer] MEDICARE PPO [employer] MEDICARE PPO Advance Directives Documents on File Type Date Recorded 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 PCP - General Breast Medical Oncology 07/05/16 Chandni Vargas PA-C [address] [place] [phone] [email or web address] Physician Leather Worker 06/15/15 Leigha Verdin APRN [address] [place] [phone] [email or web address] Nurse Practitioner 06/15/15 Daksha Ley [address] [place] [id number] [email or web address] Nurse Practitioner 06/15/15 Shantanu Barry MD [address] [place] [id number] [email or web address] Physician 06/15/15 Kei Lemus MD [address] [place] [phone] [email or web address] Physician 06/15/15 Dilshad Zeng MD [address] [place] [phone] [email or web address] Physician 06/15/15 Verónica Birmingham MD [address] [place] [phone] [email or web address] Physician 06/15/15 [place] [id number] [place] [address] Physician 06/15/15 Dipak Mejias MD [address] [place] [id number] [email or web address] Physician 06/15/15 Sobeida Porter PA [address] [place] [address]. [place] [address] [email or web address] Physician Leather Worker 06/15/15 Angelic Crmup MD [email or web address] Physician 06/15/15
--- NOTE | 2024-05-18 14:35 | RAD REPORT ---
EXAM: Chest Single View HISTORY: COPD;Dyspnea COMPARISON: 05/09/2024 FINDINGS: LUNGS/PLEURA: Similar prominence of the pulmonary interstitium. No consolidative airspace disease rosetta ntified. MEDIASTINUM: The mediastinal silhouette is within normal limits. CARDIAC: Stable size and configuration. UPPER ABDOMEN: No significant abnormality. BONES: No acute abnormality. LINES/TUBES/OTHER: N/A IMPRESSION: Similar interstitial prominence without evidence of either superimposed pulmonary edema or consolidat pretty airspace disease. A chest CT is pending.
[2024-05-18 14:36] LABS: Absolute Basophils 0.1 K/uL (0-0.5); Absolute Eosinophils 0.4 K/uL (0-0.5); Absolute Lymphocytes (CBC) 1.6 K/uL (0.7-4.9); Absolute Neutrophil 13.4 K/uL (1.8-8.0); Basophils % 0.5 % (0-1.3); Eosinophils % 2.2 % (0-4.4); Hematocrit 46.9 % (36.0-45.0); Hemoglobin 16.1 g/dL (12.0-15.0); Lymphocytes % 9.8 % (15.3-44.8); MCH 30.8 pg (27.0-35.0); MCHC 34.3 g/dL (32.0-36.0); MCV 89.9 fL (80-100); MPV 9.3 fL (7.6-11.3); Monocytes % 5.9 % (3.3-12.3); Neutrophils % 81.6 % (41.7-73.7); Nucleated Red Blood Cells % 0.1 % (0-0); Platelets 383 thou/uL (152-406); RBC Red Blood Cell Count 5.22 M/uL (3.86-4.86); Red Cell Distribution Width 15.1 % (12.1-15.2)
[2024-05-18] MEDS ORDERED: LEVALBUTEROL 1.25 MG/3 ML NEB ONE (14:46)
[2024-05-18] MEDS ORDERED: METHYLPREDNISOLONE 125 MG INJ ONE (14:46)
[2024-05-18] MEDS ORDERED: ONDANSETRON 4 MG/2 ML VIAL ONE (14:46)
[2024-05-18] MEDS ORDERED: IPRATROPIUM BROM 0.5MG/2.5ML ONE (14:46)
[2024-05-18] MEDS ORDERED: MORPHINE 4 MG/ML SYR ONE (14:47)
[2024-05-18 14:49] LABS: PT Prothrombin Time 10.4 SECONDS (9.4-12.5); PTT, Activated Partial Thromb 30.2 SECONDS (24.3-36.9); Protime INR 0.99
[2024-05-18 14:54] LABS: Albumin 3.9 g/dL (3.4-5.0); Anion Gap 9.4 mEq/L (5.0-15.0); Bilirubin Total 0.7 mg/dL (0.2-1.0); Globulin 3.9 g/dL (2.3-3.5); Potassium 3.4 mEq/L (3.5-5.1); Protein, Total 7.8 g/dL (6.4-8.2); Troponin High Sensitivity 9.8 pg/mL (<58.9)
--- NOTE | 2024-05-18 15:45 | RAD REPORT ---
EXAMINATION: CTA CHEST PE CLINICAL INDICATION: Female, 78 years old. chest pain, sob TECHNIQUE: This examination was performed according to an angiographic protocol with 3D post-processi ng. This involves 3D reconstructions, MIPs, volume rendered images and/or shaded surface rendering. One or more of the following dose reduction techniques were used: Automated exposure control, adjustm ent of the mA and/or kV according to patient size, and/or iterative reconstruction. Unless otherwise specified, incidental findings do not require dedicated imaging follow-up. [id number]. COMPARISON: 09/26/2021 FINDINGS: LOWER NECK: Visualized thyroid gland and soft tissues are normal. LUNGS AND AIRWAYS: Emphysema.No consolidative pneumonia. Bronchial wall thickening is present with se cretions/mucoid impaction. No new or enlarging pulmonary nodules. PLEURA: No pleural effusion. No pneumothorax. Hemidiaphragms are normally positioned. MEDIASTINUM AND LYMPH NODES: No mediastinal mass or fluid collection. Normal size mediastinal, hilar, and axillary lymph nodes. THORACIC AORTA: No thoracic aortic aneurysm. PULMONARY ARTERIES: Enlarged main pulmonary arteries could indicate pulmonary artery hypertension. No pulmonary emboli identified. HEART: Normal heart size. Coronary arterial calcifications are present.Lipomatous hypertrophy of the intra-atrial septum. OSSEOUS STRUCTURES AND CHEST WALL: T7 compression fracture with approximately 30% loss of height ante riorly is favored subacute or chronic. Remote appearing L1 compression fracture also noted.. UPPER ABDOMEN: No acute abnormalities. IMPRESSION: No evidence of pulmonary emboli to the subsegmental level. Basilar predominant bronchial wall thickening with secretions and/or mucoid impacted airways could re present acute bronchitis.
--- NOTE | 2024-05-18 15:57 | EDPHYS ---
Physician Documentation [facility] Name: Ting Samuel Age: 78 yrs Sex: Female : 1945 Arrival Date: 05/18/2024 Time: 13:[address] Private MD: ED Physician Flavio Garcia HPI: 05/18 14:05 This 78 yrs old Female presents to ER via Ambulatory with complaints of Breathing rn Difficulty. 14:05 The patient has shortness of breath at rest, with light activity. Onset: The rn symptoms/episode began/occurred 1 week(s) ago. Duration: The symptoms are continuous. The patient's shortness of breath is aggravated by coughing, exertion, light activity. Associated signs and symptoms: Pertinent positives: chest pain, productive cough, Pertinent negatives: fever, hemoptysis. Severity of symptoms: At their worst the symptoms were moderate in the emergency department the symptoms are unchanged. The patient has experienced similar episodes in the past. Patient reports 1 week of chest pain and shortness of breath, evaluated here and CT PE protocol was recommended but she could not tolerate laying flat due to pain and left home. Was discharged on steroids and antibiotics and states still not improved. Patient having shortness of breath. No hemoptysis.. Historical: - Allergies: 14:01 Codeine (Upset stomach); aa5 - PMHx: 13:59 CVA; aa5 - PSHx: 13:59 bipass surgery in [place] legs; vascular bypass bilateral lower extremities; aa5 - Immunization history:: Adult Immunizations unknown. - Infectious Disease History:: Denies. - Social history:: Smoking status: Patient reports the use of cigarette tobacco products. - Family history:: not pertinent. - Hospitalizations: : No recent hospitalization is reported. ROS: 14:05 Constitutional: Negative for fever, chills, and weight loss, Cardiovascular: Negative rn for chest pain, palpitations, and edema, Respiratory: Positive for cough and shortness of breath Abdomen/GI: Negative for abdominal pain, nausea, vomiting, diarrhea, and constipation, MS/Extremity: Negative for injury and deformity, Skin: Negative for injury, rash, and discoloration, Neuro: Negative for headache, weakness, numbness, tingling, and seizure, Exam: 14:05 Constitutional: This is a well developed, well nourished patient who is awake, alert, rn moderate tachypnea Head/Face: Normocephalic, atraumatic. Cardiovascular: Regular rate and rhythm. No pulse deficits. Respiratory: Moderate tachypnea, diffuse wheezing Abdomen/GI: Soft, non-tender MS/ Extremity: Pulses equal, no cyanosis. Neuro: Awake and alert, GCS 15 18:14 ECG was reviewed by the Attending Physician. rn Vital Signs: 13:58 BP 186 / 95; Pulse 71; Resp 30 S; Temp 98(O); Pulse Ox 87% on R/A; Weight 66.22 kg (R); aa5 Height 5 ft. 2 in. (R); 14:08 Pulse Ox 92% on 2 lpm NC; aa5 14:10 Resp 28 S; Pulse Ox 95% on 2 lpm NC; aa5 15:04 BP 146 / 86; Pulse 80; Pulse Ox 99% on Nebulizer Mask; ap3 13:58 Body Mass Index 26.70 (66.22 kg, 157.48 cm) aa5 MDM: 13:44 Medical Screening Exam initiated rn 15:54 Differential diagnosis: Anemia Chronic Obstructive Pulmonary Disease Myocardial rn Infarction pneumonia, Pneumothorax pulmonary edema, Pulmonary Embolism. Data reviewed: vital signs, nurses notes, lab test result(s), EKG, radiologic studies, CT scan, plain films, and as a result, I will admit patient. Consideration of Admission/Observation Escalation of care including admission/observation considered. Counseling: I had a detailed discussion with the patient and/or guardian regarding the historical points, exam findings, and any diagnostic results supporting the discharge/admit diagnosis, lab results, radiology results, the need for further work-up and treatment in the hospital. Refusal of service: The patient/guardian displays adequate decision making capability and despite a detailed discussion of alternatives, benefits, risks, and consequences refuses: Admission to the hospital for further work-up and treatment. ED course: Recommended admission to hospital, patient refuses. Told her given that we tried to send her home this past week, did not improve and came back for another evaluation I would prefer that she stays in the hospital for further treatment. Patient understands and declines.. 16:05 ED course: Initially patient was going to be discharged per her wishes but oxygen is in rn the 70s on room air, switch to AMA. Still prescribed steroids, pain medicine, nausea medicine and Augmentin as well as Levaquin. The prescriptions fell off once switched to AMA but prescriptions handed to patient.. 05/18 14:02 Order name: Blood Culture Adult (2) rn 05/18 14:02 Order name: CBC with Diff; Complete Time: 14:43 rn 05/18 14:02 Order name: CMP; Complete Time: 14:58 rn 05/18 14:02 Order name: Lactate w/ 2H reflex if indic.; Complete Time: 14:58 rn 05/18 14:02 Order name: Protime (+inr); Complete Time: 14:58 rn 05/18 14:02 Order name: Ptt, Activated; Complete Time: 14:58 rn 05/18 14:02 Order name: Troponin High Sensitivity; Complete Time: 14:58 rn 05/18 14:02 Order name: BNP; Complete Time: 14:58 rn 05/18 14:02 Order name: Chest Single View XRAY; Complete Time: 14:43 rn 05/18 14:02 Order name: CT Chest For PE Angio; Complete Time: 15:49 rn 05/18 14:02 Order name: Accucheck; Complete Time: 17:48 rn 05/18 14:02 Order name: Cardiac monitoring; Complete Time: 15:04 rn 05/18 14:02 Order name: EKG - Nurse/Tech; Complete Time: 17:48 rn 05/18 14:02 Order name: IV Saline Lock - Large Bore; Complete Time: 14:28 rn 05/18 14:02 Order name: Labs collected and sent; Complete Time: 14:28 rn 05/18 14:02 Order name: O2 Per Protocol; Complete Time: 14:28 rn 05/18 14:02 Order name: O2 Sat Monitoring; Complete Time: 14:28 rn 05/18 14:02 Order name: Vital Signs; Complete Time: 14:28 rn EC:14 Rate is 89 beats/min. Rhythm is regular. QRS Show Low is Normal. NC interval is normal. QRS rn interval is normal. QT interval is normal. No Q waves. T waves are Normal. No ST changes noted. Clinical impression: NSR w/ Non-specific ST/T Changes. Interpreted by me. Reviewed by me. Administered Medications: 15:03 Drug: Ipratropium Inhalation Aerosol 0.5 mg Inhalation once Route: Inhalation; ap3 15:03 Drug: morphine IVP or IV 4 mg IVP once over 4 mins Route: IVP; Infused Over: 4 mins; ap3 Site: Other; 17:48 Follow up: Response: No adverse reaction; Pain is decreased ap3 15:03 Drug: Ondansetron IVP 4 mg IVP once; over 2 minutes Route: IVP; Site: right antecubital;ap3 17:48 Follow up: Response: No adverse reaction ap3 15:04 Drug: MethylPrednisoLONE IVP 125 mg IVP once Route: IVP; Site: right antecubital; ap3 17:48 Follow up: Response: No adverse reaction ap3 15:04 Drug: Levalbuterol Inhalation 1.25 mg Inhalation once Route: Inhalation; ap3 16:23 Drug: Rocephin IV 1 grams IV at calculated rate once; Given slow IV push per pharmacy iw instructions Route: IV; Rate: calculated rate; Site: right antecubital; 17:48 Follow up: IV Status: Completed infusion ap3 16:23 Drug: Zithromax IVPB 500 mg IVPB once over 1 hrs; mix in 250 mL NS Route: IVPB; Infused iw Over: 1 hrs; Site: right antecubital; 17:48 Follow up: IV Status: Completed infusion ap3 Disposition Summary: 05/18/24 16:04 Left Against Medical Advice Notes: Location: Home(05/18/24 16:04) rn Problem: an acute exacerbation(05/18/24 16:04) rn Symptoms: have improved(05/18/24 16:04) rn Condition: Stable(05/18/24 16:04) rn Diagnosis - COPD/ Chronic obstructive pulmonary disease with (acute) exacerbation(05/18/24 rn 16:04) - Acute bronchitis, unspecified rn Followup: rn - With: Private Physician - When: As needed - Reason: Recheck today's complaints, Re-evaluation by your physician Discharge Instructions: - Discharge Summary Sheet rn - Acute Bronchitis, Adult rn - Chronic Obstructive Pulmonary Disease Exacerbation rn Signatures: Dispatcher [employer] Suzan Belcher RN RN iw Flavio Garcia MD MD rn Calderon, Audri, RN RN aa5 Alia Best RN RN ap3 Corrections: (The following items were deleted from the chart) 14:02 14:02 BLOOD CULTURE*+BA.LAB.BRZ ordered. EDMS EDMS 14:02 14:02 CBC+H.LAB.BRZ ordered. EDMS EDMS 14:02 14:02 COMPREHENSIVE METABOLIC PANEL+C.LAB.BRZ ordered. EDMS EDMS 14:02 14:02 LACTATE+C.LAB.BRZ ordered. EDMS EDMS 14:02 14:02 PROTIME (+INR)+COAG.LAB.BRZ ordered. EDMS EDMS 14:02 14:02 PTT, ACTIVATED+COAG.LAB.BRZ ordered. EDMS EDMS 14:03 14:03 Chest Single View+RAD.RAD.BRZ ordered. EDMS EDMS 14:03 14:03 Chest For PE Angio+CT.RAD.BRZ ordered. EDMS EDMS 14:03 14:03 Troponin High Sensitivity+C.LAB.BRZ ordered. EDMS EDMS 14:03 14:03 PROBNP+C.LAB.BRZ ordered. EDMS EDMS 16:04 15:57 Home rn rn 16:04 15:57 an acute exacerbation rn rn 16:04 15:57 have improved rn rn 16:04 15:57 Stable rn rn 16:04 15:57 COPD/ Chronic obstructive pulmonary disease with (acute) exacerbation rn rn
--- NOTE | 2024-05-18 15:57 | ER ---
Nurse's Notes [facility] Name: Ting Samuel Age: 78 yrs Sex: Female : 1945 Arrival Date: 05/18/2024 Time: 13:[address] Private MD: Diagnosis: COPD/ Chronic obstructive pulmonary disease with (acute) exacerbation;Acute bronchitis, unspecified Presentation: 05/18 13:58 Chief complaint: Patient states: SOB and cough x 1 week ago, seen here recently. aa5 Coronavirus screen: cough unrelated to allergies, shortness of breath. Ebola Screen: Patient denies travel to an Ebola-affected area in the 21 days before illness onset. Risk Assessment: Do you want to hurt yourself or someone else? Patient reports no desire to harm self or others. Onset of symptoms was May 2024. 13:58 Acuity: DOUG 2 aa5 13:58 [facility] 13:58 Initial Sepsis Screen: Does the patient meet any 2 criteria? RR > 20 per min. Does the aa5 patient have a suspected source of infection? No. Patient's initial sepsis screen is negative. Triage Assessment: 17:51 Respiratory: Reports shortness of breath Onset: The symptoms/episode began/occurred ap3 gradually, the patient has moderate shortness of breath. Historical: - Allergies: 14:01 Codeine (Upset stomach); aa5 - PMHx: 13:59 CVA; aa5 - PSHx: 13:59 bipass surgery in [place] legs; vascular bypass bilateral lower extremities; aa5 - Immunization history:: Adult Immunizations unknown. - Infectious Disease History:: Denies. - Social history:: Smoking status: Patient reports the use of cigarette tobacco products. - Family history:: not pertinent. - Hospitalizations: : No recent hospitalization is reported. Screenin:49 Abuse screen: Denies threats or abuse. Nutritional screening: No deficits noted. ap3 Tuberculosis screening: No symptoms or risk factors identified. 17:52 [facility] ED Fall Risk Assessment (Adult) History of falling in the last 3 months, ap3 including since admission Yes- fall prone (multiple falls) (3 pts) Confusion or Disorientation No (0 pts) Intoxicated or Sedated No (0 pts) Impaired Gait Yes (1 pt) Mobility Assist Device Used Yes (1 pt) Altered Elimination No (0 pt) Score/Fall Risk Level 3 or more points = High Risk Oriented to surroundings, Maintained a safe environment, Educated pt \T\ family on fall prevention, incl call for assistance when getting out of bed, Assessed \T\ reinforced patient's understanding of fall precautions, Hourly rounding (assess needs \T\ fall precautionary measures) done, Used ambulatory aids as needed (educated on \T\ assisted with), Remained w/in arm's length of patient and in sight while toileting, Offered frequent toileting (1:1 observation), Remained with patient while ambulating, Utilized family, sitter, or virtual land commissioner as indicated. Assessment: 17:26 General: Pts O2 sat noted to be at 75% on RA. Pt placed back on O2 via NC. pt states cm10 that she does not want to be admitted and would like to go home. Dr. Garcia made aware. . 17:49 Pain: Complains of pain in back. Neuro: Level of Consciousness is awake, alert, obeys ap3 commands, Oriented to person, place, time, situation, Appropriate for age Speech is normal. Cardiovascular: Patient's skin is warm and dry. Respiratory: Airway is patent Respiratory effort is even, using tripod position, Respiratory pattern is regular, symmetrical, tachypnea. Vital Signs: 13:58 BP 186 / 95; Pulse 71; Resp 30 S; Temp 98(O); Pulse Ox 87% on R/A; Weight 66.22 kg (R); aa5 Height 5 ft. 2 in. (R); 14:08 Pulse Ox 92% on 2 lpm NC; aa5 14:10 Resp 28 S; Pulse Ox 95% on 2 lpm NC; aa5 15:04 BP 146 / 86; Pulse 80; Pulse Ox 99% on Nebulizer Mask; ap3 13:58 Body Mass Index 26.70 (66.22 kg, 157.48 cm) aa5 ED Course: 13:39 Patient arrived in ED. mr 13:44 Flavio Garcia MD is Attending Physician. rn 13:58 Arm band placed on. aa5 13:59 Triage completed. aa5 14:00 Patient has correct armband on for positive identification. Bed in low position. Call ap3 light in reach. Side rails up X2. Adult w/ patient. 14:00 Client placed on continuous cardiac and pulse oximetry monitoring. NIBP monitoring ap3 applied. child monitor on. Pulse ox on. NIBP on. 14:28 Inserted saline lock: 20 gauge in right antecubital area, using aseptic technique. iw Blood collected. Flushed with 10 mL NS. 14:28 Initial lab(s) drawn, by me, sent to lab. First set of blood cultures drawn by me. iw 14:33 Chest Single View XRAY In Process Unspecified. EDMS 14:42 Alia Best RN is Primary Nurse. ap3 15:33 CT Chest For PE Angio In Process Unspecified. EDMS 17:51 IV discontinued, intact, bleeding controlled, No redness/swelling at site. Pressure ap3 dressing applied. 17:52 Provided Education on: medications prior to administration . ap3 Administered Medications: 15:03 Drug: Ipratropium Inhalation Aerosol 0.5 mg Inhalation once Route: Inhalation; ap3 15:03 Drug: morphine IVP or IV 4 mg IVP once over 4 mins Route: IVP; Infused Over: 4 mins; ap3 Site: Other; 17:48 Follow up: Response: No adverse reaction; Pain is decreased ap3 15:03 Drug: Ondansetron IVP 4 mg IVP once; over 2 minutes Route: IVP; Site: right antecubital;ap3 17:48 Follow up: Response: No adverse reaction ap3 15:04 Drug: MethylPrednisoLONE IVP 125 mg IVP once Route: IVP; Site: right antecubital; ap3 17:48 Follow up: Response: No adverse reaction ap3 15:04 Drug: Levalbuterol Inhalation 1.25 mg Inhalation once Route: Inhalation; ap3 16:23 Drug: Rocephin IV 1 grams IV at calculated rate once; Given slow IV push per pharmacy iw instructions Route: IV; Rate: calculated rate; Site: right antecubital; 17:48 Follow up: IV Status: Completed infusion ap3 16:23 Drug: Zithromax IVPB 500 mg IVPB once over 1 hrs; mix in 250 mL NS Route: IVPB; Infused iw Over: 1 hrs; Site: right antecubital; 17:48 Follow up: IV Status: Completed infusion ap3 Medication: 17:52 VIS not applicable for this client. ap3 Outcome: 15:57 Discharge ordered by MD. holden 17:51 AMA AMA form signed ap3 17:51 Condition: stable 17:51 Instructed on medication usage, Demonstrated understanding of medications, risks of AMA Prescriptions given X 4, 18:43 Patient left the ED. ap3 Signatures: Dispatcher [employer] EDMS Ginger Avila, Reg Reg Suzan Lewis, RN MAYURI iw Flavio Garcia MD MD rn Calderon, Audri, RN RN aa5 Alia Best RN RN ap3 Denisse Verdin RN RN cm10 Corrections: (The following items were deleted from the chart) 14:00 13:58 Pulse Ox 87% RA; aa5 aa5 14:00 13:58 Initial Sepsis Screen: Does the patient meet any 2 criteria? RR > 20 per min. HR aa5 > 90 bpm. Does the patient have a suspected source of infection? No. Patient's initial sepsis screen is negative. aa5 14:01 13:58 BP 186 / 95; Pulse 71bpm; Resp 30bpm; Spontaneous; Pulse Ox 87% RA; aa5 aa5
[2024-05-18] MEDS ORDERED: CEFTRIAXONE 1000 MG/VIAL ONE (16:15)
[2024-05-18] MEDS ORDERED: AZITHROMYCIN 500 MG INJ IVPB ONE (16:15)
[2024-05-18] MEDS ORDERED: NA CHLORIDE 0.9% 250 ML ONE (16:15)
[2024-05-18 23:38] VITALS: TEMP 98
[2024-05-18 23:41] VITALS: BP 146/86; O2SAT 99
--- NOTE | 2024-05-19 12:42 | EKG ---
Test Date: 2024-05-18 Test Time: 17:45:32 Epic Manager: ALP MEASUREMENT RESULTS: Intervals: Rate: 89 MT: 116 QRSD: 72 QT: 340 QTc: 413 [place]: P: 74 MT: 116 QRS: 22 T: 57 INTERPRETIVE STATEMENTS: Sinus rhythm with premature atrial complexes Nonspecific ST and T wave abnormality Abnormal ECG Compared to ECG 05/09/2024 15:01:25 Atrial premature complex(es) now present ST (T wave) deviation still present Electronically Signed On 05-19-24 12:40:39 PROJECT ARCHIVIST by Miguelito Escobedo
== END 2024-05-18 18:43 | disposition left against medical advice (07) ==
LOC: ER 13:38
DX: J44.1 Chronic obstructive pulmonary disease with (acute) exacerbation (principal); J44.0 Chronic obstructive pulmonary disease with (acute) lower respiratory infection; J20.9 Acute bronchitis, unspecified; Z72.0 Tobacco use
CPT/HCPCS: 93005; 87040; 85025; 36415; 85610; 83605; 85730; 84484; 80053; 83880; 71275; 71045; 99285; Q9967; J7614; J7644; J2919; J2405; J7050; J0696